=== PATIENT | male | born 1945 | race Caucasian/White ===

== ENCOUNTER 2020-08-03 11:22 | Outpatient (REF) | payer MEDICARE, SELFPAY ==
[2020-08-05 07:45] LABS: ~HepC Num1 0.08 S/CO (0.00-0.79); ~Hepatitis C Antibody Nonreactive (Nonreactive)
[2020-08-05 08:36] LABS: HBsAGNum1 0.18 S/CO (0.00-0.99); HIV AB/AG Nonreactive (Nonreactive); HIV Num 1 0.07 S/CO (0.00-0.99); Hepatitis B Surface Antigen Negative (Negative)
== END 2020-08-03 11:23 | disposition home or self-care (01) ==
LOC: HO.MANLDS 11:22
PROVIDERS: PCP Internal Medicine; Visit Provider Internal Medicine
DX: Z01.84 Encounter for antibody response examination (principal); Z11.4 Encounter for screening for human immunodeficiency virus [HIV]; T14.8XXA Other injury of unspecified body region, initial encounter; W46.1XXA Contact with contaminated hypodermic needle, initial encounter
CPT/HCPCS: 36415; 86803; 87340; 87389

== ENCOUNTER 2021-05-23 18:27 | Outpatient (REF) | payer MEDICARE, SELFPAY ==
[2021-05-23 18:39] LABS: Appearance Urine CLEAR; Color Urine YELLOW; Glucose Urine UA >=1000 MG/DL (NEG); Leukocyte Esterase Urine NEG (NEG); Nitrite Urine NEG (NEG); Specific Gravity - Urine >= 1.030 (1.005-1.025); UACC Culture Trigger NO; Urine Blood TRACE (NEG); Urine Ketones NEG (NEG); Urine Protein 2+ MG/DL (NEG-TRACE)
[2021-05-23 18:55] LABS: Amorphous Sediment Urine TRACE /LPF; Granular Casts Urine 0-2 /LPF; Hyaline Casts Urine 0-2 /LPF; Mucus Urine 1+ /LPF; RBC Urine 0-2 /HPF (0); Renal Epithelial Cells Urine 1+ /LPF; Squamous Epithelial Cell Urine TRACE /LPF; WBC Urine 0-2 /HPF (0-4)
== END 2021-05-23 18:28 | disposition home or self-care (01) ==
LOC: HO.LNP 18:27
PROVIDERS: Visit Provider Physician Assistant
DX: R30.0 Dysuria (principal)
CPT/HCPCS: 81001

== ENCOUNTER 2021-05-24 14:46 | Outpatient (REF) | payer MEDICARE, SELFPAY ==
[2021-05-24 18:17] LABS: Alanine Aminotransferase 17 U/L (0-40); Albumin Level 4.2 g/dL (3.5-5.0); Alkaline Phosphatase 50 U/L (39-117); Amylase 119 U/L (28-100); Aspartate Amino Transferase 20 U/L (5-37); Bilirubin Direct 0.2 mg/dL (0.0-0.5); Bilirubin Total 0.7 mg/dL (0.0-1.0); Lipase 127 U/L (8-78); Total Protein 6.5 g/dL (6.5-8.0)
[2021-05-24 18:18] LABS: Gamma Glutamyl Transpeptidase 18 U/L (11-51)
== END 2021-05-24 14:47 | disposition home or self-care (01) ==
LOC: HO.MANLDS 14:46
PROVIDERS: PCP Physician Assistant; Visit Provider Physician Assistant
DX: R19.5 Other fecal abnormalities (principal)
CPT/HCPCS: 36415; 80076; 82150; 82977; 83690

== ENCOUNTER 2021-05-26 14:09 | Outpatient (REF) | payer MEDICARE, SELFPAY | END 2021-05-26 14:10 | disposition home or self-care (01) | LOC: HO.MANLDS 14:09 | PROVIDERS: PCP Physician Assistant; Visit Provider Physician Assistant | DX: R19.5 Other fecal abnormalities (principal) | CPT/HCPCS: 87045; 87046; 87077 ==

== ENCOUNTER 2021-09-27 14:49 | Outpatient (REF) | payer MEDICARE, SELFPAY ==
[2021-09-27 18:27] LABS: C Reactive Protein 0.15 mg/dL (< or = 0.50)
== END 2021-09-27 14:50 | disposition home or self-care (01) ==
LOC: HO.MANLDS 14:49
PROVIDERS: Visit Provider Internal Medicine
DX: M35.3 Polymyalgia rheumatica (principal)
CPT/HCPCS: 36415; 86140

== ENCOUNTER 2021-10-24 15:03 | Outpatient (REF) | payer MEDICARE, SELFPAY ==
[2021-10-24 18:33] LABS: Hematocrit 33.5 % (42.0-52.0); Hemoglobin 10.9 g/dl (14.0-18.0); Iron 43 mcg/dL (45-160); Mean Corpuscular HGB Conc 32.5 g/dl (31.0-36.0); Mean Corpuscular Hemoglobin 29.6 pg (27.0-33.0); Mean Platelet Volume 10.3 fL (9.4-12.4); Percent Iron Saturation 12 % (15-50); Platelet Count 192 X10*3/uL (160-400); Red Blood Count 3.68 X10*6/uL (4.60-5.80); Red Cell Distribution Width 14.2 % (11.0-16.0); Total Iron Binding Capacity 346 mcg/dL (228-428); Unsaturated Iron Binding 303 ug/dL; White Blood Count 6.2 X10*3/uL (4.8-10.8)
[2021-10-24 18:53] LABS: Ferritin 33 ng/mL (20-250)
== END 2021-10-24 15:04 | disposition home or self-care (01) ==
LOC: HO.MANLDS 15:03
PROVIDERS: Visit Provider Physician Assistant
DX: D50.0 Iron deficiency anemia secondary to blood loss (chronic) (principal)
CPT/HCPCS: 36415; 82728; 83540; 85027

== ENCOUNTER 2021-11-01 15:05 | Outpatient (REF) | payer MEDICARE, SELFPAY ==
[2021-11-02 13:26] LABS: Lyme Abs Screen <0.90 index
[2021-11-05 11:27] LABS: Babesia IgG <1:64 titer (<1:64); Babesia IgM <1:20 titer (<1:20)
[2021-11-05 12:27] LABS: A. Phagocytophilum Ab IgG <1:64 (<1:64); A. Phagocytophilum Ab IgM <1:20 (<1:20); E. Chaffeensis Ab IgG <1:64 (<1:64); E. Chaffeensis Ab IgM <1:20 (<1:20)
== END 2021-11-01 15:06 | disposition home or self-care (01) ==
LOC: HO.MANLDS 15:05
PROVIDERS: Visit Provider Physician Assistant
DX: A69.20 Lyme disease, unspecified (principal)
CPT/HCPCS: 36415; 86617; 86618; 86666; 86753

== ENCOUNTER 2022-06-06 11:15 | Outpatient (REF) | payer MEDICARE, SELFPAY ==
[2022-06-06 13:04] LABS: MANUAL DIFF FLAG NO
[2022-06-06 13:06] LABS: Basophils Percent Auto 0.6 % (0-2); Eosinophils Absolute Auto 0.1 X10*3/uL (0.0-0.4); Eosinophils Percent Auto 2.5 % (0-4); Hematocrit 39.4 % (42.0-52.0); Hemoglobin 13.1 g/dl (14.0-18.0); Imm Gran Abs Auto 0.03 X10*3/uL (0.00-0.03); Imm Gran Pct Auto 0.6 % (0.0-0.4); Lymphocytes Absolute Auto 0.6 X10*3/uL (1.2-4.9); Lymphocytes Percent Auto 12.9 % (20-40); Mean Corpuscular HGB Conc 33.2 g/dl (31.0-36.0); Mean Corpuscular Hemoglobin 30.3 pg (27.0-33.0); Mean Platelet Volume 10.4 fL (9.4-12.4); Monocytes Absolute Auto 0.7 X10*3/uL (0.1-1.2); Neutrophils Absolute Auto 3.3 x10*3/uL (2.0-8.3); Neutrophils Percent Auto 68.4 % (45-73); Platelet Count 182 X10*3/uL (160-400); Red Blood Count 4.33 X10*6/uL (4.60-5.80); White Blood Count 4.9 X10*3/uL (4.8-10.8)
[2022-06-06 13:20] LABS: Alanine Aminotransferase 25 U/L (0-40); Albumin Level 4.4 g/dL (3.5-5.0); Alkaline Phosphatase 67 U/L (39-117); Anion Gap 13 (12-20); Aspartate Amino Transferase 26 U/L (5-37); Bilirubin Total 0.8 mg/dL (0.0-1.0); Blood Urea Nitrogen 38 mg/dL (9-16); Calcium 10.4 mg/dL (8.4-10.2); Carbon Dioxide 27 mmol/L (22-29); Chloride 103 mmol/L (96-108); Cholesterol 198 mg/dL; Estimated Glomerular Filt Rate 26; Glucose Random 89 mg/dL (60-115); HDL Cholesterol 52 mg/dL; LDL Cholesterol Calculated 118 mg/dl; Potassium 4.8 mmol/L (3.3-5.1); Sodium 138 mmol/L (135-145); Total Protein 6.6 g/dL (6.5-8.0); Triglycerides 141 mg/dL
[2022-06-06 13:21] LABS: Estimated Average Glucose 114 mg/dL; Hemoglobin A1C 126.8356 umol/L; Hemoglobin A1c % 5.6 %
== END 2022-06-06 11:16 | disposition home or self-care (01) ==
LOC: HO.MANLDS 11:15
PROVIDERS: Visit Provider Physician Assistant
DX: I10 Essential (primary) hypertension (principal); Z13.89 Encounter for screening for other disorder
CPT/HCPCS: 36415; 80053; 80061; 83036; 85025

== ENCOUNTER 2022-06-19 13:11 | Outpatient (REF) | payer MEDICARE, SELFPAY ==
[2022-06-20 15:17] LABS: E. coli EAEC Detected (Not Detect.)
[2022-06-20 15:18] LABS: Adenovirus F 40/41 Not Detected (Not Detect.); Astrovirus Not Detected (Not Detect.); Campylobacter Not Detected (Not Detect.); Cryptosporidium Not Detected (Not Detect.); Cyclospora cayetanensis Not Detected (Not Detect.); E. coli EPEC Not Detected (Not Detect.); E. coli ETEC Not Detected (Not Detect.); E. coli STEC Not Detected (Not Detect.); Entamoeba histolytica Not Detected (Not Detect.); Giardia lamblia Not Detected (Not Detect.); Norovirus GI/GII Not Detected (Not Detect.); Plesiomonas shigelloides Not Detected (Not Detect.); Rotavirus A Not Detected (Not Detect.); Salmonella Not Detected (Not Detect.); Sapovirus Not Detected (Not Detect.); Shigella sp./EIEC Not Detected (Not Detect.); Vibrio Not Detected (Not Detect.); Vibrio Cholerae Not Detected (Not Detect.); Yersinia enterocolitica Not Detected (Not Detect.)
== END 2022-06-19 13:12 | disposition home or self-care (01) ==
LOC: HO.LNP 13:11
PROVIDERS: Visit Provider Physician Assistant
DX: R10.0 Acute abdomen (principal)
CPT/HCPCS: 87507

== ENCOUNTER 2022-06-20 13:07 | Outpatient (REF) | payer MEDICARE, SELFPAY ==
[2022-06-20 13:29] LABS: OBS1 NEGATIVE (NEGATIVE)
[2022-06-20 13:30] LABS: OBS Int Ctl Valid YES; OBS2 NEGATIVE (NEGATIVE); OBS3 NEGATIVE (NEGATIVE)
[2022-06-20 13:31] LABS: OBS Lot 50612 3L
== END 2022-06-20 13:08 | disposition home or self-care (01) ==
LOC: HO.LNP 13:07
PROVIDERS: Visit Provider Physician Assistant
DX: R19.4 Change in bowel habit (principal)
CPT/HCPCS: 82270

== ENCOUNTER 2023-08-21 11:17 | Outpatient (REF) | payer MEDICARE, SELFPAY ==
[2023-08-21 14:11] LABS: Iron 78 mcg/dL (45-160); Percent Iron Saturation 24 % (15-50); Total Iron Binding Capacity 328 mcg/dL (228-428); Unsaturated Iron Binding 250 ug/dL
[2023-08-21 14:19] LABS: Ferritin 19 ng/mL (20-250)
== END 2023-08-21 11:18 | disposition home or self-care (01) ==
LOC: HO.MANLDS 11:17
PROVIDERS: Visit Provider Internal Medicine
DX: E61.1 Iron deficiency (principal)
CPT/HCPCS: 36415; 82728; 83540

== ENCOUNTER 2023-09-23 11:49 | Outpatient (REF) | payer MEDICARE, SELFPAY ==
[2023-09-23 14:38] LABS: Ferritin 527 ng/mL (20-250); Vitamin D 25-OH Total 28.5 ng/mL (>30)
== END 2023-09-23 11:50 | disposition home or self-care (01) ==
LOC: HO.MANLDS 11:49
PROVIDERS: Visit Provider Internal Medicine
DX: E55.9 Vitamin D deficiency, unspecified (principal)
CPT/HCPCS: 36415; 82306; 82728

== ENCOUNTER 2023-10-25 11:36 | Outpatient (REF) | payer MEDICARE, SELFPAY ==
[2023-10-25 14:48] LABS: Folate 14.3 ng/mL (> or = 4.0); Vitamin B12 610 pg/mL (200-900)
[2023-10-25 14:52] LABS: Ferritin 69 ng/mL (20-250); Free T4 (Free Thyroxine) 0.93 ng/dL (0.71-1.85); Thyroid Stimulating Hormone 1.29 uIU/mL (0.32-4.0)
== END 2023-10-25 11:37 | disposition home or self-care (01) ==
LOC: HO.MANLDS 11:36
PROVIDERS: Visit Provider Internal Medicine
DX: R41.3 Other amnesia (principal)
CPT/HCPCS: 36415; 82607; 82728; 82746; 84439; 84443

== ENCOUNTER 2023-12-25 11:48 | Outpatient (REF) | payer MEDICARE, SELFPAY ==
[2023-12-25 14:28] LABS: Ferritin 22 ng/mL (20-250)
== END 2023-12-25 11:49 | disposition home or self-care (01) ==
LOC: HO.MANLDS 11:48
PROVIDERS: Visit Provider Internal Medicine
DX: E61.1 Iron deficiency (principal)
CPT/HCPCS: 36415; 82728

== ENCOUNTER 2024-02-05 12:07 | Outpatient (REF) | payer MEDICARE, SELFPAY ==
[2024-02-05 17:47] LABS: MANUAL DIFF FLAG NO
[2024-02-05 18:07] LABS: Basophils Absolute Auto 0.1 X10*3/uL (0.0-0.2); Basophils Percent Auto 0.7 % (0-2); Eosinophils Absolute Auto 0.2 X10*3/uL (0.0-0.4); Eosinophils Percent Auto 2.5 % (0-4); Hematocrit 41.8 % (42.0-52.0); Hemoglobin 14.5 g/dl (14.0-18.0); Imm Gran Abs Auto 0.05 X10*3/uL (0.00-0.03); Imm Gran Pct Auto 0.7 % (0.0-0.4); Lymphocytes Percent Auto 14.5 % (20-40); Mean Corpuscular HGB Conc 34.7 g/dl (31.0-36.0); Mean Corpuscular Hemoglobin 32.3 pg (27.0-33.0); Mean Corpuscular Volume 93.1 fL (80.0-98.0); Mean Platelet Volume 10.2 fL (9.4-12.4); Monocytes Absolute Auto 0.8 X10*3/uL (0.1-1.2); Monocytes Percent Auto 11.5 % (2-11); Neutrophils Absolute Auto 4.7 x10*3/uL (2.0-8.3); Neutrophils Percent Auto 70.1 % (45-73); Platelet Count 234 X10*3/uL (160-400); Red Blood Count 4.49 X10*6/uL (4.60-5.80); Red Cell Distribution Width 14.4 % (11.0-16.0); White Blood Count 6.7 X10*3/uL (4.8-10.8)
[2024-02-05 18:12] LABS: Alanine Aminotransferase 22 U/L (0-40); Albumin Level 4.5 g/dL (3.5-5.0); Alkaline Phosphatase 62 U/L (39-117); Anion Gap 14 (12-20); Aspartate Amino Transferase 27 U/L (5-37); Bilirubin Total 0.8 mg/dL (0.0-1.0); Blood Urea Nitrogen 31 mg/dL (9-16); C Reactive Protein < 0.04 mg/dL (< or = 0.50); Calcium 10.8 mg/dL (8.4-10.2); Carbon Dioxide 21 mmol/L (22-29); Chloride 106 mmol/L (96-108); Estimated Glomerular Filt Rate 27; Glucose Random 119 mg/dL (60-115); Iron 107 mcg/dL (45-160); Percent Iron Saturation 34 % (15-50); Potassium 4.6 mmol/L (3.3-5.1); Sodium 136 mmol/L (135-145); Total Iron Binding Capacity 318 mcg/dL (228-428); Total Protein 7.1 g/dL (6.5-8.0); Unsaturated Iron Binding 211 ug/dL
[2024-02-05 18:28] LABS: Ferritin 56 ng/mL (20-250); T4 Thyroxine 6.8 ug/dL (4.5-12.0); Thyroid Stimulating Hormone 1.11 uIU/mL (0.32-4.0)
[2024-02-05 18:36] LABS: Vitamin B12 724 pg/mL (200-900)
[2024-02-05 18:41] LABS: Erythrocyte Sedimentation Rate 3 MM/HR (0-15)
[2024-02-07 03:44] LABS: Immunoglobulin E 121 kU/L (<OR=114)
[2024-02-10 15:03] LABS: VITAMIN D (1,25 OH) D3 31 pg/mL; Vit D (1,25-Dihydroxy) Total 31 pg/mL (18-72); Vitamin D (1,25 OH) D2 <8 pg/mL
== END 2024-02-05 12:08 | disposition home or self-care (01) ==
LOC: HO.MANLDS 12:07
PROVIDERS: Visit Provider Physician Assistant
DX: R53.83 Other fatigue (principal); E61.1 Iron deficiency
CPT/HCPCS: 36415; 80053; 82607; 82652; 82728; 82785; 83540; 84436; 84443; 85025; 85652; 86140

== ENCOUNTER 2024-06-23 13:46 | Outpatient (REF) | payer MEDICARE, SELFPAY ==
--- OUTSIDE RECORDS SUMMARY | 2024-06-23 16:23 | XMS_ITS | Encounter Summary ---
Author Organization [facility], Address [address] [place] [address] Phone Care Team Providers Care Diving Coach Name Role Phone Yared Kam DO Primary Care Provider [phone] Encounter Details Date Type Department Care Team (Late st Contact Info) Description 04/05/2023 Orders Only [facility] [address] [place] [address] Angelica De Leon [address] [place] [phone] 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hy (HCC); Other iron deficiency anemia; Peripheral vascular disease (HCC); Nephrolithiasis; Other hyperlipidemia; Essential hypertension; Stage 3b chronic kidney disease (HCC); Edema, not otherwise specified; Routine general medical examination at a health care facility Social History Tobacco Use Types Packs/Day Years Used Date Smoking Tobacco: Former Cigarettes Comments:Smoking History Inf o:Unknown Alcohol Use Standard Drinks/Week Comments Yes 0 (1 standard drink = 0.6 oz pure alcohol) Alcoholic Drinks/day: Occasional social drink Sex and Gender Information Value Date Recorded Sex Assigned at Male 01/06/2024 3:41 PM EDT Legal Sex Male 4:31 PM EST Gender Identity Male 01/06/2024 3:41 PM EDT Sexual Orientation Straight 01/06/2024 3: 41 PM EDT documented as of this encounter Plan of Treatment Upcoming Encounters Date Type Department Care Team (Late st Contact Info) Description 07/09/2024 2:15 PM EDT Office Visit [facility] Lele [address] [place] [phone] Bereket Billings MD [address] [place] [phone] documented as of this encounter Visit Diagnoses Diagnosis 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hy (HCC) Other iron deficiency anemia Peripheral vascular disease (HCC) Peripheral vascular disease Nephrolithiasis Other hyperlipidemia Essential hypertension Stage 3b chronic kidney disease (HCC) Edema, not otherwise specified Routine general medical examination at a health care facility documented in this encounter Care Teams Diving Coach Relationship Specialty Start Date End Date Yared Kam DO [address] [place] [phone] PCP - General 01/27/19 documented as of this encounter
--- OUTSIDE RECORDS SUMMARY | 2024-06-23 16:23 | XMS_ITS | Encounter Summary ---
Author Organization [facility], Address [address] [place] [address] Phone Care Team Providers Care Supervisor [employer] Name Role Phone Yared Kam DO Primary Care Provider [phone] Encounter Details Date Type Department Care Team (Late st Contact Info) Description 07/12/2023 Orders Only [facility] [address] [place] [address] Angelica De Leon [address] [place] [phone] 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hy [...] Visit [facility] Lele [address] [place] [phone] Bereket Billings MD [address] [place] [phone] documented as of this encounter Procedures Procedure Name Priority Date/Time Associated Diagnosis Comments HEMOGLOBIN A1C Routine 07/15/2023 1:33 PM EDT 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hy (HCC) Other iron deficiency anemia Peripheral vascular disease (HCC) Nephrolithiasis Other hyperlipidemia Essential hypertension Stage 3b chronic kidney disease (HCC) Edema, not otherwise specified Routine general medical examination at a health care facility documented in this encounter Results * (ABNORMAL) Hemoglobin A1c (07/15/2023 1:33 PM EDT) Hemoglobin A1C 5.9(H) 4.8 - 5.6 % See order comments Comment: ? Prediabetes: 5.7 - 6.4 ? Diabetes: >6.4 ? Glycemic control for adults with diabetes: <7.0 Blood (Blood, Venous) 07/15/2023 1:33 PM EDT 07/15/2023 Narrative [facility] - 07/16/2023 9:07 AM EDT Performed at: ??01 - [facility] [address] ??[id number] Manager Medicaid: Kathleen Hyman MD, Phone: ??[phone] us Jose Newell MD LAB BLOOD ORDERABLES Final Res ult [facility] See order comments [place] [address] documented in this encounter Visit Diagnoses Diagnosis 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hy (HCC) Other iron deficiency anemia Peripheral vascular disease (HCC) Peripheral vascular disease Nephrolithiasis Other hyperlipidemia Essential hypertension Stage 3b chronic kidney disease (HCC) Edema, not otherwise specified Routine general medical examination at a health care facility documented in this encounter Care Teams Supervisor [employer] Relationship Specialty Start Date End Date Yared Kam DO [address] [place] [phone] PCP - General 01/27/19 documented as of this encounter
--- OUTSIDE RECORDS SUMMARY | 2024-06-23 16:23 | XMS_ITS | Encounter Summary ---
Author Organization [facility], Address [address] [place] [address] Phone Care Team Providers Care Tire Finisher Name Role Phone Yared Kam DO Primary Care Provider [phone] Encounter Details Date Type Department Care Team (Late st Contact Info) Description 06/28/2023 Orders Only [facility] [address] [place] [address] Angelica De Leon [address] [place] [address] [phone] 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hy [...] Visit [facility] Lele HANNON [address] [place] [phone] Bereket Billings MD [address] [place] [address] [place] [phone] documented as of this encounter Procedures Procedure Name Priority Date/Time Associated Diagnosis Comments URINALYSIS, COMPLETE Routine 07/15/2023 1:34 PM EDT 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hy (HCC) Other iron deficiency anemia Peripheral vascular disease (HCC) Nephrolithiasis Other hyperlipidemia Essential hypertension Stage 3b chronic kidney disease (HCC) Edema, not otherwise specified Routine general medical examination at a health care facility MICROSCOPIC EXAMINATION - DO NOT USE Routine 07/15/2023 1:34 PM EDT IRON PANEL (FE, TIBC, TSAT) Routine 07/15/2023 1:34 PM EDT 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hy (HCC) Other iron deficiency anemia Peripheral vascular disease (HCC) Nephrolithiasis Other hyperlipidemia Essential hypertension Stage 3b chronic kidney disease (HCC) Edema, not otherwise specified Routine general medical examination at a health care facility PROTEIN / CREATININE RATIO, URINE Routine 07/15/2023 1:34 PM EDT 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hy (HCC) Other iron deficiency anemia Peripheral vascular disease (HCC) Nephrolithiasis Other hyperlipidemia Essential hypertension Stage 3b chronic kidney disease (HCC) Edema, not otherwise specified Routine general medical examination at a health care facility URINE ALBUMIN / CREATININE RATIO Routine 07/15/2023 1:34 PM EDT 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hy (HCC) Other iron deficiency anemia Peripheral vascular disease (HCC) Nephrolithiasis Other hyperlipidemia Essential hypertension Stage 3b chronic kidney disease (HCC) Edema, not otherwise specified Routine general medical examination at a health care facility VITAMIN D 25 HYDROXY Routine 07/15/2023 1:34 PM EDT 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hy (HCC) Other iron deficiency anemia Peripheral vascular disease (HCC) Nephrolithiasis Other hyperlipidemia Essential hypertension Stage 3b chronic kidney disease (HCC) Edema, not otherwise specified Routine general medical examination at a health care facility CBC AND DIFFERENTIAL Routine 07/15/2023 1:34 PM EDT 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hy (HCC) Other iron deficiency anemia Peripheral vascular disease (HCC) Nephrolithiasis Other hyperlipidemia Essential hypertension Stage 3b chronic kidney disease (HCC) Edema, not otherwise specified Routine general medical examination at a health care facility URIC ACID Routine 07/15/2023 1:34 PM EDT 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hy (HCC) Other iron deficiency anemia Peripheral vascular disease (HCC) Nephrolithiasis Other hyperlipidemia Essential hypertension Stage 3b chronic kidney disease (HCC) Edema, not otherwise specified Routine general medical examination at a health care facility TSH W/REFLEX TO FT4 Routine 07/15/2023 1 :34 PM EDT 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hy (HCC) Other iron deficiency anemia Peripheral vascular disease (HCC) Nephrolithiasis Other hyperlipidemia Essential hypertension Stage 3b chronic kidney disease (HCC) Edema, not otherwise specified Routine general medical examination at a health care facility PSA, TOTAL Routine 07/15/2023 1:34 PM EDT 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hy (HCC) Other iron deficiency anemia Peripheral vascular disease (HCC) Nephrolithiasis Other hyperlipidemia Essential hypertension Stage 3b chronic kidney disease (HCC) Edema, not otherwise specified Routine general medical examination at a health care facility PTH, INTACT Routine 07/15/2023 1:34 PM EDT 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hy (HCC) Other iron deficiency anemia Peripheral vascular disease (HCC) Nephrolithiasis Other hyperlipidemia Essential hypertension Stage 3b chronic kidney disease (HCC) Edema, not otherwise specified Routine general medical examination at a health care facility MAGNESIUM Routine 07/15/2023 1:34 PM EDT 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hy (HCC) Other iron deficiency anemia Peripheral vascular disease (HCC) Nephrolithiasis Other hyperlipidemia Essential hypertension Stage 3b chronic kidney disease (HCC) Edema, not otherwise specified Routine general medical examination at a health care facility FERRITIN Routine 07/15/2023 1:34 PM EDT 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hy (HCC) Other iron deficiency anemia Peripheral vascular disease (HCC) Nephrolithiasis Other hyperlipidemia Essential hypertension Stage 3b chronic kidney disease (HCC) Edema, not otherwise specified Routine general medical examination at a health care facility HEPATIC FUNCTION PANEL Routine 07/15/2023 1:34 PM EDT 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hy (HCC) Other iron deficiency anemia Peripheral vascular disease (HCC) Nephrolithiasis Other hyperlipidemia Essential hypertension Stage 3b chronic kidney disease (HCC) Edema, not otherwise specified Routine general medical examination at a health care facility RENAL FUNCTION PANEL Routine 07/15/2023 1:34 PM EDT 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hy (HCC) Other iron deficiency anemia Peripheral vascular disease (HCC) Nephrolithiasis Other hyperlipidemia Essential hypertension Stage 3b chronic kidney disease (HCC) Edema, not otherwise specified Routine general medical examination at a health care facility LIPID PANEL Routine 07/15/2023 1:34 PM EDT 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hy (HCC) Other iron deficiency anemia Peripheral vascular disease (HCC) Nephrolithiasis Other hyperlipidemia Essential hypertension Stage 3b chronic kidney disease (HCC) Edema, not otherwise specified Routine general medical examination at a health care facility documented in this encounter Results * Microscopic Examination (07/15/2023 1:34 PM EDT) WBC, Urine None seen 0 - 5 /hpf See orde r comments RBC, Urine None seen 0 - 2 /hpf See orde r comments Squamous Epithelial, Urine None seen 0 - 10 /hpf See order comments Casts None seen None seen /lpf See order comments Bacteria, Urine None seen None seen/Few See order comments 07/15/2023 1:34 PM EDT 07/15/2023 Narrative [facility] - 07/17/2023 1:06 AM EDT Performed at: ??01 - [facility] [address] ??[id number] Tax Compliance Manager: Kathleen Hyman MD, Phone: ??[phone] us Jose Newell MD LAB MICROBIOLOGY - GENERAL ORD ERABLES Final Result Performing Organization Address City/State/[facility] Co de Phone Number [facility] See order comments [place] [address] * (ABNORMAL) PTH, intact (07/15/2023 1:34 PM EDT) Pathologist [facility] PTH 82(H) 15 - 65 pg/mL See order comments Blood (Blood, Venous) 07/15/2023 1:34 PM EDT 07/15/2023 Narrative [facility] - 07/17/2023 1:06 AM EDT Performed at: ?? - [facility] [address] ??[id number] Tax Compliance Manager: Kathleen Hyman MD, Phone: ??[phone] Jose Newell MD LAB BLOOD ORDERABLES Final Res ult Performing Organization Address [facility] de Phone Number [facility] See order comments [place] [address] * (ABNORMAL) Lipid panel (07/15/2023 1:34 PM EDT) [facility] Cholesterol 189 100 - 199 mg/dL See order comments Triglycerides 262(H) 0 - 149 mg/dL See order comments HDL 48 >39 mg/dL See order comments VLDL Cholesterol Andrea 44(H) 5 - 40 mg/dL See order comments LDL Calculated 97 0 - 99 mg/dL See order comments Blood (Blood, Venous) 07/15/2023 1:34 PM EDT 07/15/2023 Narrative [facility] - 07/17/2023 1:06 AM EDT Performed at: ?? - [facility] [address] ??[id number] Tax Compliance Manager: Kathleen Hyman MD, Phone: ??[phone] Jose Newell MD LAB BLOOD ORDERABLES Final Res ult Performing Organization Address [facility] de Phone Number [facility] See order comments [place] [address] * PSA (07/15/2023 1:34 PM EDT) Pathologist [facility] PSA 0.4 0.0 - 4.0 ng/mL See order comments Comment: Pretty ECLIA methodology. According to the [place] [employer], Serum PSA should decrease and remain at undetectable levels after radical prostatectomy. The AUA defines biochemical recurrence as an initial PSA value 0.2 ng/mL or greater followed by a subsequent confirmatory PSA value 0.2 ng/mL or greater. Values obtained with different assay methods or kits cannot be used interchangeably. Results cannot be interpreted as absolute evidence of the presence or absence of malignant disease. Blood (Blood, Venous) 07/15/2023 1:34 PM EDT 07/15/2023 Narrative [facility] - 07/17/2023 1:06 AM EDT Performed at: ??01 - [facility] [address] ??[id number] Tax Compliance Manager: Kathleen Hyman MD, Phone: ??[phone] Jose Newell MD LAB BLOOD ORDERABLES Final Res ult [facility] See order comments [place] [address] * Hepatic function panel (07/15/2023 1:34 PM EDT) Total Protein 6.7 6.0 - 8.5 g/dL See order comments Total Bilirubin 0.5 0.0 - 1.2 mg/dL See order comments Bilirubin, Direct 0.16 0.00 - 0.40 mg/dL See order comments Alkaline Phosphatase 83 44 - 121 IU/L See order comments AST (SGOT) 20 0 - 40 IU/L See order comments ALT (SGPT) 18 0 - 44 IU/L See order comments Blood (Blood, Venous) 07/15/2023 1:34 PM EDT 07/15/2023 Narrative [facility] - 07/17/2023 1:06 AM EDT Performed at: ??01 - [facility] [address] ??[id number] Tax Compliance Manager: Kathleen Hyman MD, Phone: ??[phone] Jose Newell MD LAB BLOOD ORDERABLES Final Res ult Performing Organization Address [facility]/ZIP Co de Phone Number [facility] See order comments [place] [address] * TSH w/reflex to FT4 (07/15/2023 1:34 PM EDT) TSH 1.520 0.450 - 4.500 uIU/mL See order comments Comment: No apparent thyroid disorder. Additional testing not indicated. In rare instances, Secondary Hypothyroidism as well as Subclinical Hypothyroidism have been reported in some patients with normal TSH values. Blood (Blood, Venous) 07/15/2023 1:34 PM EDT 07/15/2023 Narrative [facility] - 07/17/2023 1:06 AM EDT Performed at: ??01 - [facility] [address] ??[id number] Tax Compliance Manager: Kathleen Hyman MD, Phone: ??[phone] Jose Newell MD LAB BLOOD ORDERABLES Final Res ult Performing Organization Address [facility] Co de Phone Number [facility] See order comments [place] [address] * (ABNORMAL) Vitamin D 25 hydroxy (07/15/2023 1:34 PM EDT) Vitamin D, 25-OH, Total 13.1(L) 30.0 - 100.0 ng/mL See order comments Comment: Vitamin D deficiency has been defined by the [place] of [employer] and an Endocrine Society practice guideline as a level of serum 25-OH vitamin D less than 20 ng/mL (1,2). The Endocrine Society went on to further define vitamin D insufficiency as a level between 21 and 29 ng/mL (2). 1. IOM ([place] of [employer]). 2010. Dietary reference ?? intakes for calcium and D. [place]: The ?? National Academies Press. 2. Flaquito MF, Jean Carlos [place], Sathya WALLER, et al. ?? Evaluation, treatment, and prevention of vitamin D ?? deficiency: an Endocrine Society clinical practice ?? guideline. JCEM. 2010; 96(7):1911-30. Blood (Blood, Venous) 07/15/2023 1:34 PM EDT 07/15/2023 Narrative [facility] - 07/17/2023 1:06 AM EDT Performed at: ??01 - [facility] [address] ??[id number] Tax Compliance Manager: Kathleen Hyman MD, Phone: ??[phone] Jose Newell MD LAB BLOOD ORDERABLES Final Res ult Performing Organization Address [facility] de Phone Number [facility] See order comments [place] [address] * (ABNORMAL) Urine Albumin / Creatinine Ratio (07/15/2023 1:34 PM EDT) Urine Microalbumin 517.8 Not Estab. ug/mL See order comments Comment: Results confirmed on dilution. Microalbumin/Crea tinine Ratio 2,185(H) 0 - 29 mg/g creat See order comments Comment: ? Normal: ?0 - ??29 ? Moderately increased: 30 - 300 ? Severely increased: ? >300 Urine (Urine, Clean Catch) 07/15/2023 1:34 PM EDT 07/15/2023 Narrative [facility] - 07/17/2023 1:06 AM EDT Performed at: ??01 - [facility] [address] ??[id number] Tax Compliance Manager: Kathleen Hyman MD, Phone: ??[phone] us Jose Newell MD LAB URINE ORDERABLES Final Res ult Performing Organization Address [facility] de Phone Number [facility] See order comments [place] [address] * (ABNORMAL) Urine Protein / creatinine ratio (07/15/2023 1:34 PM EDT) Creatinine, Ur 23.7 Not Estab. mg/dL See order comments Protein, Ur 79.8 Not Estab. mg/dL See order comments Urine Protein/Creati nine Ratio 3,367(H) 0 - 200 mg/g creat See order comments Urine (Urine, Clean Catch) 07/15/2023 1:34 PM EDT 07/15/2023 Narrative [facility] - 07/17/2023 1:06 AM EDT Performed at: ??01 - [facility] [address] ??[id number] Tax Compliance Manager: Kathleen Hyman MD, Phone: ??[phone] us Jose Newell MD LAB URINE ORDERABLES Final Res ult [facility] See order comments [place] [address] * (ABNORMAL) Urinalysis, Complete w/reflex to Culture (07/15/2023 1:34 PM EDT) Pathologist [facility] Specific [place], Urine 1.010 1.005 - 1.030 See order comments pH Urine 7.0 5.0 - 7.5 See order comments Color, Urine Yellow Yellow See ord er comments Appearance Urine Clear Clear See order comments WBC Esterase Urine Negative Negative See order comments Protein, Ur 2+(A) Negative/Tra ce See order comments Glucose, Ur 3+(A) Negative See orde r comments Ketones, Urine Negative Negative See o rder comments Blood Urine Negative Negative See orde r comments Bilirubin Urine Negative Negative See order comments Urobilinogen Urine 0.2 0.2 - 1.0 mg/dL See order comments Nitrite, Urine Negative Negative See o rder comments Microscopic Examination See below: See order comments Comment:Microscopic was anatoliy cated and was performed. URINALYSIS REFLEX Comment See order comments Comment:This specimen will n ot reflex to a Urine Culture. Urine (Urine, Clean Catch) 07/15/2023 1:34 PM EDT 07/15/2023 Narrative [facility] - 07/17/2023 1:06 AM EDT Performed at: ??01 - [facility] [address] ??[id number] Tax Compliance Manager: Kathleen Hyman MD, Phone: ??[phone] Jose Newell MD LAB URINE ORDERABLES Final Res ult Performing Organization Address [facility] Co de Phone Number [facility] See order comments [place] [address] * (ABNORMAL) Ferritin (07/15/2023 1:34 PM EDT) Ferritin 18(L) 30 - 400 ng/mL See order comments Blood (Blood, Venous) 07/15/2023 1:34 PM EDT 07/15/2023 Narrative [facility] - 07/17/2023 1:06 AM EDT Performed at: ?? - [facility] ??[id number] Tax Compliance Manager: Kathleen Hyman MD, Phone: ??[phone] Jose Newell MD LAB BLOOD ORDERABLES Final Res ult Performing Organization Address [facility] Co de Phone Number [facility] See order comments [place] [address] * (ABNORMAL) Iron Panel (Fe, TIBC, TSAT) (07/15/2023 1:34 PM EDT) Pathologist [facility] TIBC 383 250 - 450 ug/dL See order comments UIBC 344(H) 111 - 343 ug/dL See order comments Iron 39 38 - 169 ug/dL See order comments Iron Saturation (TSat) 10(L) 15 - 55 % See order comments Blood (Blood, Venous) 07/15/2023 1:34 PM EDT 07/15/2023 Narrative [facility] - 07/17/2023 1:06 AM EDT Performed at: ??01 - [facility] [address] ??[id number] Tax Compliance Manager: Kathleen Hyman MD, Phone: ??[phone] Jose Newell MD LAB BLOOD ORDERABLES Final Res ult [facility] See order comments [place] [address] * (ABNORMAL) CBC and differential (07/15/2023 1:34 PM EDT) WBC 7.3 3.4 - 10.8 x10E3/uL See order comments RBC 4.62 4.14 - 5.80 x10E6/uL See order comments Hemoglobin 13.3 13.0 - 17.7 g/dL See order comments Hematocrit 40.3 37.5 - 51.0 % See order comments MCV 87 79 - 97 fL See order comments MCH 28.8 26.6 - 33.0 pg See order comments MCHC 33.0 31.5 - 35.7 g/dL See order comments RDW 15.5(H) 11.6 - 15.4 % See order comments Platelets 233 150 - 450 x10E3/uL See order comments Neutrophils Relative 68 Not Estab. % See order comments Lymphocytes Relative 12 Not Estab. % See order comments Monocytes 13 Not Estab. % See order comments Eosinophils Relative 5 Not Estab. % See order comments Basophils Relative 1 Not Estab. % See order comments Neutrophils Absolute 5.0 1.4 - 7.0 x10E3/uL See order comments Lymphocytes Absolute 0.9 0.7 - 3.1 x10E3/uL See order comments Monocytes Absolute 0.9 0.1 - 0.9 x10E3/uL See order comments Eosinophils Absolute 0.4 0.0 - 0.4 x10E3/uL See order comments Basophils Absolute 0.1 0.0 - 0.2 x10E3/uL See order comments Immature Granulocytes 1 Not Estab. % See order comments Immature Grans (Absolute) 0.0 0.0 - 0.1 x10E3/uL See order comments Blood (Blood, Venous) 07/15/2023 1:34 PM EDT 07/15/2023 Narrative [facility] - 07/17/2023 1:06 AM EDT Performed at: ??01 - [facility] [address] ??[id number] Tax Compliance Manager: Kathleen Hyman MD, Phone: ??[phone] us Jose Newell MD LAB BLOOD ORDERABLES Final Res ult Performing Organization Address [facility] Co de Phone Number [facility] See order comments [place] [address] * Uric acid (07/15/2023 1:34 PM EDT) Uric Acid 4.9 3.8 - 8.4 mg/dL See order comments Comment:Therapeutic target f or gout patients: <6.0 Blood (Blood, Venous) 07/15/2023 1:34 PM EDT 07/15/2023 Narrative [facility] - 07/17/2023 1:06 AM EDT Performed at: ??01 - [facility] [address] ??[id number] Tax Compliance Manager: Kathleen Hyman MD, Phone: ??[phone] us Jose Newell MD LAB BLOOD ORDERABLES Final Res ult Performing Organization Address [facility] de Phone Number [facility] See order comments [place] [address] * Magnesium (07/15/2023 1:34 PM EDT) Pathologist [facility] Magnesium 2.0 1.6 - 2.3 mg/dL See order comments Blood (Blood, Venous) 07/15/2023 1:34 PM EDT 07/15/2023 Narrative [facility] - 07/17/2023 1:06 AM EDT Performed at: ??01 - [facility] [address] ??[id number] Tax Compliance Manager: Kathleen Hyman MD, Phone: ??[phone] us Jose Newell MD LAB BLOOD ORDERABLES Final Res ult Performing Organization Address [facility] de Phone Number [facility] See order comments [place] [address] * (ABNORMAL) Renal function panel (07/15/2023 1:34 PM EDT) Glucose 79 70 - 99 mg/dL See order comments BUN 26 8 - 27 mg/dL See order comments Creatinine 1.92(H) 0.76 - 1.27 mg/dL See order comments eGFR CKD-EPI CR 2020 36(L) >59 mL/min/1.7 3 See order comments BUN/Creatinine Ratio 14 10 - 24 See order comments Sodium 141 134 - 144 mmol/L See order comments Potassium 4.3 3.5 - 5.2 mmol/L See order comments Chloride 102 96 - 106 mmol/L See order comments Bicarbonate (CO2) 22 20 - 29 mmol/L See order comments Phosphorus 2.3(L) 2.8 - 4.1 mg/dL See order comments Albumin 4.3 3.8 - 4.8 g/dL See order comments Calcium 10.5(H) 8.6 - 10.2 mg/dL See order comments Blood (Blood, Venous) 07/15/2023 1:34 PM EDT 07/15/2023 Narrative [facility] - 07/17/2023 1:06 AM EDT Performed at: ??01 - [facility] [address] ??[id number] Tax Compliance Manager: Kathleen Hyman MD, Phone: ??[phone] us Jose Newell MD LAB BLOOD ORDERABLES Final Res ult [facility] See order comments [place] [address] documented in this encounter Visit Diagnoses Diagnosis 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hy (HCC) Other iron deficiency anemia Peripheral vascular disease (HCC) Peripheral vascular disease Nephrolithiasis Other hyperlipidemia Essential hypertension Stage 3b chronic kidney disease (HCC) Edema, not otherwise specified Routine general medical examination at a health care facility documented in this encounter Care Teams Tire Finisher Relationship Specialty Start Date End Date Yared Kam DO [address] [place] [address] PCP - General 01/27/19 documented as of this encounter
--- OUTSIDE RECORDS SUMMARY | 2024-06-23 16:24 | XMS_ITS | Encounter Summary ---
Author Organization [facility], Address [address] [place] [address] Phone Care Team Providers Care Director Internal Communications Name Role Phone Yared Kam DO Primary Care Provider [phone] Encounter Details Date Type Department Care Team (Late st Contact Info) Description 09/20/2023 Orders Only [facility] [address] [address] Angelica De Leon [address] [place] [address] [phone] 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hy [...] Visit [facility] Lele [address] [place] [phone] Bereket Billings MD [address] [place] [address] [place] [phone] Pending Results Name Type Priority Associated Diagnoses Date /Time Renal Function Panel Lab Routine 12/23 3:07 PM EDT Hepatic Function Panel Lab Routine 3:07 PM EDT Lipid panel Lab Routine 01/08/2024 3: 07 PM EDT Iron Panel (Fe, TIBC, TSAT) Lab Routine 01/08/2024 3:07 PM EDT TSH w/reflex to FT4 Lab Routine 01/07 3:07 PM EDT Uric Acid Lab Routine 01/08/2024 3:0 7 PM EDT Magnesium Lab Routine 01/08/2024 3:0 7 PM EDT Ferritin Lab Routine 01/08/2024 3:0 7 PM EDT documented as of this encounter Procedures Procedure Name Priority Date/Time Associated Diagnosis Comments IRON PANEL (FE, TIBC, TSAT) Routine 01/08/2024 3:07 PM EDT VITAMIN D 25 HYDROXY Routine 01/08/2024 3:07 PM EDT CBC AND DIFFERENTIAL Routine 01/08/2024 3:07 PM EDT URIC ACID Routine 01/08/2024 3:07 PM EDT TSH W/REFLEX TO FT4 Routine 01/08/2024 3 :07 PM EDT PTH, INTACT Routine 01/08/2024 3:07 PM EDT MAGNESIUM Routine 01/08/2024 3:07 PM EDT FERRITIN Routine 01/08/2024 3:07 PM EDT HEPATIC FUNCTION PANEL Routine 01/08/2024 3:07 PM EDT RENAL FUNCTION PANEL Routine 01/08/2024 3:07 PM EDT LIPID PANEL Routine 01/08/2024 3:07 PM EDT documented in this encounter Results * (ABNORMAL) PTH, Intact (01/08/2024 3:07 PM EDT) PTH 77(H) 15 - 65 pg/mL [facility] 01/08/2024 3:07 PM EDT 01/08/2024 Jose Newell MD LAB BLOOD ORDERABLES Final Res ult Performing Organization Address City/[facility]/ZIP Co de Phone Number [facility] [address] [place] [address] * Vitamin D 25 Hydroxy (01/08/2024 3:07 PM EDT) Vitamin D, 25-OH, Total 31.5 30.0 - 100.0 ng/mL [facility] Comment: Vitamin D deficiency has been defined by the [place] of [employer] and an Endocrine Society practice guideline as a level of serum 25-OH vitamin D less than 20 ng/mL (1,2). The Endocrine Society went on to further define vitamin D insufficiency as a level between 21 and 29 ng/mL (2). 1. IOM ([place] of Medicine). 2010. Dietary reference ?? intakes for calcium and D. [place]: The ?? National Academies Press. 2. Flaquito MF, Jean Carlos [place], Sathya WALLER, et al. ?? Evaluation, treatment, and prevention of vitamin D ?? deficiency: an Endocrine Society clinical practice ?? guideline. JCEM. 2010; 96(7):1911-30. 01/08/2024 3:07 PM EDT 01/08/2024 Jose Newell MD LAB BLOOD ORDERABLES Final Res ult [facility] [address] [place] [address] * (ABNORMAL) CBC and Differential (01/08/2024 3:07 PM EDT) WBC 7.3 3.4 - 10.8 x10E3/uL [facility] RBC 4.51 4.14 - 5.80 x10E6/uL [facility] Hemoglobin 14.8 13.0 - 17.7 g/dL [facility] Hematocrit 42.8 37.5 - 51.0 % [facility] MCV 95 79 - 97 fL [facility] MCH 32.8 26.6 - 33.0 pg [facility] MCHC 34.6 31.5 - 35.7 g/dL [facility] RDW 13.8 11.6 - 15.4 % [facility] Platelets 238 150 - 450 x10E3/uL [facility] Neutrophils Relative 65 Not Estab. % [facility] Lymphocytes Relative 15 Not Estab. % [facility] Monocytes 15 Not Estab. % [facility] Eosinophils Relative 3 Not Estab. % [facility] Basophils Relative 1 Not Estab. % [facility] Neutrophils Absolute 4.8 1.4 - 7.0 x10E3/uL [facility] Lymphocytes Absolute 1.1 0.7 - 3.1 x10E3/uL [facility] Monocytes Absolute 1.1(H) 0.1 - 0.9 x10E3/uL [facility] Eosinophils Absolute 0.3 0.0 - 0.4 x10E3/uL [facility] Basophils Absolute 0.1 0.0 - 0.2 x10E3/uL [facility] Immature Granulocytes 1 Not Estab. % [facility] Immature Grans (Absolute) 0.0 0.0 - 0.1 x10E3/uL [facility] Comment: Unable to calculate result since non-numeric result obtained for component test. 01/08/2024 3:07 PM EDT 01/08/2024 us Jose eNwell MD LAB BLOOD ORDERABLES Final Res ult [facility] [address] [place] [phone] documented in this encounter Visit Diagnoses Diagnosis 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hy (HCC) Other iron deficiency anemia Peripheral vascular disease (HCC) Peripheral vascular disease Nephrolithiasis Other hyperlipidemia Essential hypertension Stage 3b chronic kidney disease (HCC) Edema, not otherwise specified Routine general medical examination at a health care facility documented in this encounter Care Teams Director Internal Communications Relationship Specialty Start Date End Date Yared Kam DO [address] [place] [address] PCP - General 01/27/19 documented as of this encounter
--- OUTSIDE RECORDS SUMMARY | 2024-06-23 16:24 | XMS_ITS | Encounter Summary ---
Author Organization [facility], Address [address] [place] [address] Phone Care Team Providers Care Prospect Manager Name Role Phone Yared Kam DO Primary Care Provider [phone] Encounter Details Date Type Department Care Team (Late st Contact Info) Description 11/03/2021 Documentation Only [facility] [address] [place] [address] Jose Newell MD [address] [place] [address] [place] [address] Social History Tobacco Use Types Packs/Day Years [...] Visit [facility] [address] Ebony [address] [place] [phone] Bereket Billings MD [address] [place] [address] [place] [address] documented as of this encounter Visit Diagnoses Not on filedocumented in this encounter Care Teams Prospect Manager Relationship Specialty Start Date End Date Yared Kam DO [address] [place] [address] PCP - General 01/27/19 documented as of this encounter
--- OUTSIDE RECORDS SUMMARY | 2024-06-23 16:24 | XMS_ITS | Clinical Summary ---
Author Organization [facility] Address [address] [place] [address] Care Team Providers Care Digital Sales Assistant Name Role Phone Yared Kam DO Primary Care Provider Allergies Active Allergy Reactions Criticality Noted Date Comments Codeine Nausea And Vomiting 08/22/2022 Meperidine Anaphylaxis High 08/22/2022 Iodine Rash Low 08/22/2022 Penicillins Anaphylaxis High 08/22/2022 Medications Medication Sig Dispensed Refills Start Date End Date Status albuterol 108 (90 Base) MCG/ACT inhaler albuterol sulfate HFA 90 mcg/actuation aerosol inhaler INHALE 2 PUFFS INTO THE LUNGS EVERY 4 HOURS NEEDED FOR WHEEZING OR SHORTNESS OF BREATH OR DIFFICULT BREATHING 0 04/17/2021 Active allopurinol (ZYLOPRIM) 100 MG tablet Take 1 tablet (100 mg total) by mouth daily. 0 08/13/2022 Active Alpha-Lipoic Acid 300 MG CAPS Take 300 mg by mouth. 0 Active amLODIPine (NORVASC) tablet 5 mg amlodipine 5 mg tablet 0 03/13/2022 Active aspirin 81 MG EC tablet Take 1 tablet (81 mg total) by mouth. 0 03/13/2022 Active atorvastatin (LIPITOR) tablet 40 mg Take 1 tablet (40 mg total) by mouth daily. 0 07/27/2022 Active b complex vitamins capsule Take 1 capsule by mouth. 0 Active buPROPion (WELLBUTRIN SR) 150 MG 12 hr tablet bupropion HCl SR 150 mg tablet,12 hr sustained-release TAKE 1 TABLET BY MOUTH EVERY 12 HOURS 0 02/04/2017 Active Evpqjxnplo-MQWL-Ughk eine 50-300-40 MG CAPS butalbital-acetamino phen-caffeine 50 mg-300 mg-40 mg capsule TAKE 1 CAPSULE BY MOUTH IF NEEDED FOR MIGRAINE 0 Active chorionic gonadotropin (PREGNYL) 51024 units injection 0 08/23/2022 Active Coenzyme Q10 100 MG capsule Take 100 mg by mouth. 0 Active empagliflozin (Jardiance) 10 MG tablet Jardiance 10 mg tablet TAKE 1 TABLET BY MOUTH 1 TIME DAILY 30 MINUTES AFTER THE SAME MEAL FOR 90 DOSES 0 05/16/2020 Active erenumab-aooe (Aimovig) SOAJ Aimovig Autoinjector 140 mg/mL subcutaneous auto-injector 0 Active esomeprazole (NexIUM) capsule 20 mg 1 capsule Orally Once a day 0 02/20/2022 Active Fluticasone Furoate-Vilanterol 200-25 MCG/ACT AEPB Inhale 1 puff into the lungs. 0 01/24/2022 Active hydrocortisone 2.5 % cream hydrocortisone 2.5 % topical cream 0 Active metFORMIN (GLUCOPHAGE) tablet 500 mg metformin 500 mg tablet TAKE 1 TABLET BY MOUTH TWICE DAILY 0 02/20/2022 Active potassium citrate (UROCIT-K) 10 MEQ (1080 MG) SR tablet potassium citrate ER 10 mEq (1,080 mg) tablet,extended release TAKE 1 TABLET BY MOUTH EVERY MORNING AND TAKE 2 EVERY EVENING DO NOT CRUSH CHEW OR SPIT 0 09/22/2013 Active rivaroxaban (Xarelto) 15 MG TABS tablet Xarelto 15 mg tablet 0 07/27/2022 Acti ve Sodium Fluoride 5000 Plus 1.1 % CREA USE TO BRUSH TEETH TWICE DAILY 0 06/08/2022 Active tadalafil (CIALIS) 5 MG tablet tadalafil 5 mg tablet TAKE 1 TABLET BY MOUTH EVERY DAY 0 03/15/2020 Active tamsulosin (FLOMAX) 0.4 MG CAPS Take 1 capsule (0.4 mg total) by mouth daily. 0 08/02/2022 Active zolpidem (AMBIEN) 10 MG tablet Take 1 tablet (10 mg total) by mouth. 0 03/14/2017 Active testosterone undecanoate (Aveed) 750 MG/3ML intramuscular injection Aveed 750 mg/3 mL (250mg/mL) intramuscular solution 0 02/20/2022 Active Active Problems Problem Noted Date Diagnosed Date Anemia 08/21/2022 Social History Tobacco Use Types Packs/Day Years Used Date Smoking Tobacco: Never Assessed Sex and Gender Information Value Date Recorded Sex Assigned at Male 08/17/2022 12:17 PM EDT Gender Identity Male 08/22/2022 1:39 PM EDT Sexual Orientation Straight 08/22/2022 1: 39 PM EDT Job Start Date Occupation Industry Not on file Not on file Not on file Last Filed Vital Signs Vital Sign Reading Time Taken Comments Blood Pressure 143/67 10/23/2022 1:20 PM EDT Pulse 65 10/23/2022 1:20 PM EDT Temperature 36.4 ??C (97.5 ??F) 10/23/2022 1:20 PM ED T Respiratory Rate 16 08/29/2022 2:00 PM EDT Oxygen Saturation 99% 10/23/2022 1:20 PM EDT Inhaled Oxygen Concentration - - Weight - - Height - - Body Mass Index - - Plan of Treatment Health Maintenance Due Date Last Done Comments Hepatitis C Screening 1945 Depression Screening 1959 Preventative Health Evaluation 11/19/1965 DTap / Tdap / Td (1 - Tdap) 11/19/1966 Fall Risk Assessment 11/19/2012 Pneumococcal Vaccine (2 of 2 - PCV) 01/17/2017 01/18/2016 Shingrix-Zoster Vaccine (2 of 2) 04/08/2020 02/12/2020, 02/12/2020 RSV Adult > 60+ Yrs or (1 - 1-dose 75+ series) 11/19/2022 COVID-19 Vaccine (3 - season) 2023 05/25/2020, 05/04/2020 Influenza Vaccine (#1) 2023 , 01/18/2020, 01/05/2019, Additional history exists Hepatitis B Vaccines Aged Out No long er eligible based on patient's age to complete this topic RSV Ped < 20 months Aged Out No longe r eligible based on patient's age to complete this topic Care Teams Digital Sales Assistant Relationship Specialty Start Date End Date Yared Kam DO [address] [place] [address] PCP - General Internal Medicine 08/21/22
--- OUTSIDE RECORDS SUMMARY | 2024-06-23 16:24 | XMS_ITS | Clinical Summary ---
Author Organization [facility], Address [address] [place] [address] [place] [address] Phone Care Team Providers Care Threshing Operator Name Role Phone Yared Kam DO Primary Care Provider [phone] Allergies Active Allergy Reactions Criticality Noted Date Comments Butenafine Rash Medium 08/16/2021 Lotrimin Ultra Butenafine Hcl Rash Low 01/11/2021 Clotrimazole 01/08/2024 Codeine 07/17/2019 Iodinated Contrast Media 07/17/2019 Iodine 11/03/2020 Lisinopril 07/17/2019 Meperidine 07/17/2019 Neomycin 08/16/2021 Other 11/03/2020 Oxycodone 07/29/2020 Penicillins 07/17/2019 Oxycodone-Acetaminophen 07/17/2019 Rosuvastatin Other (see comments) 02/13/2022 Shellfish-Derived Products 07/17/2019 Medications allopurinol (ZYLOPRIM) 100 MG tablet Take 100 mg by mouth 1 (one) time each day Active Alpha-Lipoic Acid 300 MG capsule Take 300 mg by mouth 1 (one) time each day Active Testosterone 20.25 MG/1.25GM (1.62%) gel Place 4 Pump on the skin 1 (one) time each day Active aspirin 81 MG tablet Take 81 mg by mouth 1 (one) time each day Active buPROPion SR (WELLBUTRIN SR) 150 MG 12 hr tablet Take 150 mg by mouth 2 (two) times a day Active CHORIONIC GONADOTROPIN IJ 3 (three) times a week Active Coenzyme Q10 (COQ10) 100 MG capsule Take 100 mg by mouth 1 (one) time each day Active atorvastatin (LIPITOR) 80 MG tablet Take 80 mg by mouth 1 (one) time each day Active losartan (COZAAR) 100 MG tablet Take 100 mg by mouth 1 (one) time each day Active Multiple Vitamin (MULTIVITAMIN) tablet Take 1 tablet by mouth 1 (one) time each day Active esomeprazole (NexIUM) 20 MG packet Take 20 mg by mouth 1 (one) time each day Active budesonide (PULMICORT) 180 MCG/ACT inhaler Inhale 2 puffs 2 (two) times a day Active tamsulosin (FLOMAX) 0.4 MG 24 hr capsule Take 0.4 mg by mouth 1 (one) time each day Active b complex vitamins capsule Take 1 capsule by mouth 1 (one) time each day Active Jardiance 10 MG tablet TAKE 1 TABLET BY MOUTH EVERY DAY 30 tablet 2 2 Active losartan (Cozaar) 100 MG tablet Take 1 tablet (100 mg total) by mouth 1 (one) time each day 30 tablet 11 2 Active potassium citrate 10 MEQ (1080 MG) CR tablet Take 1 tablet by mouth in the morning and 2 tablets by mouth in the evening 270 tablet 3 4 Active Empagliflozin (Jardiance) 10 MG tablet Take 10 mg by mouth 1 (one) time each day 90 tablet 3 4 Active Hospital, Clinic, or Other Facility Administered Medication Ordered Dose Route Frequency Start Date End Date Status iron sucrose (VENOFER) injection 300 mgIndications: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 300 mg IV Once in dialysis 07/11/2022 Active Active Problems Problem Noted Date Diagnosed Date Other iron deficiency anemia 07/11/2022 Essential hypertension 11/30/2021 Stage 3b chronic kidney disease 11/30/2021 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 hy Serum creatinine above reference range Peripheral vascular disease Nephrolithiasis Hyperlipidemia Edema Anemia Immunizations Name Administration Dates Next Due Influenza Split High Dose Pr eservative Free IM 12/30/2018,12/30/2018,11/27/2017,01/02,12/10/2015,01/13/2015 Influenza Vaccine, Quadrival ent, Adjuvanted 12/15/2020,01/18/2020 Influenza, Quadrivalent, Wit h Preservative 01/05/2019,01/05/2019,11/27/2017,11/27 Influenza, Trivalent, Adjuvanted 12/08/2015 Influenza, Unspecified 12/15/2020,02/16/2011 Pfizer SARS-COV-2 05/25/2020,,05/04/2020,05/04 Pneumococcal Polysaccharide 01/18/2016 Zoster 02/12/2020 Family History Medical History Relation Comments Coronary artery disease Father Heart attack Father Hyperlipidemia Father Hypertension Father Lymphoma Father Nephrolithiasis Father COPD Mother Coronary artery disease Mother Diabetes Mother Heart attack Mother Hypertension Mother Diabetes Paternal Grandmother Hypertension Sibling Melanoma Sibling Relation Status Comments Father Mother Paternal Grandmother Sibling Social History Tobacco Use Types Packs/Day Years [...] Orientation Straight 01/06/2024 3: 41 PM EDT Last Filed Vital Signs Vital Sign Reading Time Taken Comments Blood Pressure 140/70 07/20/2019 11:11 AM EDT Pulse - - Temperature - - Respiratory Rate - - Oxygen Saturation - - Inhaled Oxygen Concentration - - Weight 104 kg (230 lb) 07/20/2019 11:11 AM EDT Height 177.8 cm (5' 10 ) 02/23/2019 12:00 PM EST Body Mass Index 33 02/23/2019 12:00 PM EST Plan of Treatment Upcoming Encounters Date Type Department Care Team (Late st Contact Info) Description 07/09/2024 2:15 PM EDT Office Visit [facility] [address] [place] [address] Bereket Billings MD [address] [facility] [address] [facility] [place] [phone] Health Maintenance Due Date Last Done Comments Pneumococcal Vaccine: 65+ Years (2 of 2 - PCV) 01/17/2017 01/18/2016 Diabetes: Ophthalmology Exam 06/12/2019 Diabetes: Pedal Pulse Checked 06/12/2019 Diabetes: Sensory Foot Exam 06/12/2019 Diabetes: Visual Foot Exam 06/12/2019 Diabetes: Hemoglobin A1C 10/14/2023 024, 01/15/2023, 10/12/2022, Additional history exists Influenza Vaccine (#1) 2023 1, 12/15/2020, 01/18/2020, Additional history exists Hepatitis B Vaccine Aged Out No longe r eligible based on patient's age to complete this topic Procedures Procedure Name Priority Date/Time Associated Diagnosis Comments HEMOGLOBIN A1C Routine 07/15/2023 1:33 PM EDT 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hy (HCC) Other iron deficiency anemia Peripheral vascular disease (HCC) Nephrolithiasis Other hyperlipidemia Essential hypertension Stage 3b chronic kidney disease (HCC) Edema, not otherwise specified Routine general medical examination at a [facility] care facility from Last 3 Months or Most Recently Relevant to Health Maintenance Results * (ABNORMAL) Hemoglobin A1c (07/15/2023 1:33 PM EDT) Hemoglobin A1C 5.9(H) 4.8 - 5.6 % See order comments Comment: ? Prediabetes: 5.7 - 6.4 ? Diabetes: >6.4 ? Glycemic control for adults with diabetes: <7.0 Blood (Blood, Venous) 07/15/2023 1:33 PM EDT 07/15/2023 Narrative [facility] - 07/16/2023 9:07 AM EDT Performed at: ??01 - [facility] [address] ??[id number] Belt Machine Operator: Kathleen Hyman MD, Phone: ??[phone] us Jose Newell MD LAB BLOOD ORDERABLES Final Res ult [facility] See order comments [place] [address] from Last 3 Months or Most Recently Relevant to Health Maintenance Insurance MEDICARE [facility] Care Teams Threshing Operator Relationship Specialty Start Date End Date Yared Kam DO [address] [facility] [address] PCP - General 01/27/19
--- OUTSIDE RECORDS SUMMARY | 2024-06-23 16:24 | XMS_ITS | Encounter Summary ---
Author Organization [facility], Address [address] [place] [address] Phone Care Team Providers Care Track Equipment Operator Name Role Phone Yared Kam DO Primary Care Provider [phone] Encounter Details Date Type Department Care Team (Late st Contact Info) Description 01/08/2024 Documentation Only [facility] Lele [address] [place] [address] Ann Ruvalcaba [address] [place] [phone] Social History Tobacco Use Types Packs/Day Years [...] Visit [facility] Lele [address] [place] [address] Bereket Billings MD [address] [place] [phone] documented as of this encounter Visit Diagnoses Not on filedocumented in this encounter Care Teams Track Equipment Operator Relationship Specialty Start Date End Date Yared Kam DO [address] [place] [address] PCP - General 01/27/19 documented as of this encounter
--- OUTSIDE RECORDS SUMMARY | 2024-06-23 16:24 | XMS_ITS | Encounter Summary ---
Author Organization [facility], Address [address] [place] [address] Phone Care Team Providers Care Prepress Manager Name Role Phone Yared Kam DO Primary Care Provider [phone] Encounter Details Date Type Department Care Team (Late st Contact Info) Description 08/25/2021 Documentation Only [facility] [address] [place] [address] Angelica De Leon [address] [place] [phone] Social History Tobacco Use Types Packs/Day Years [...] [facility] [address] Ebony [address]ANNON [address] [place] [phone] Bereket Billings MD [address] [place] [address] [place] [phone] documented as of this encounter Visit Diagnoses Not on filedocumented in this encounter Care Teams Prepress Manager Relationship Specialty Start Date End Date Yared Kam DO [address] [facility] [place] [place] [address] PCP - General 01/27/19 documented as of this encounter
--- OUTSIDE RECORDS SUMMARY | 2024-06-23 16:24 | XMS_ITS | Encounter Summary ---
Author Organization [facility] [place], Address [address] [place] [address] Phone Care Team Providers Care Rescue Worker Name Role Phone Yared Kam DO Primary Care Provider [phone] Encounter Details Date Type Department Care Team (Late st Contact Info) Description 10/15/2022 Documentation Only [facility] [address] [place] [address] Angelica De Leon [address] [place] [phone] Social History Tobacco Use Types Packs/Day Years [...] Visit [facility] [address] Ebony HANNON [address] [place] [phone] Bereket Billings MD [address] [place] [address] [place] [phone] documented as of this encounter Visit Diagnoses Not on filedocumented in this encounter Care Teams Rescue Worker Relationship Specialty Start Date End Date Yared Kam DO [address] [facility] [place] [address] PCP - General 01/27/19 documented as of this encounter
--- OUTSIDE RECORDS SUMMARY | 2024-06-23 16:24 | XMS_ITS | Encounter Summary ---
Author Organization [facility] [place], Address [address] [place] [address] Phone Care Team Providers Care Vending Stand Supervisor Name Role Phone Yared Kam DO Primary Care Provider [phone] Encounter Details Date Type Department Care Team (Late st Contact Info) Description 09/10/2023 Documentation Only [facility] [address] [place] [address] Angelica De Leon [address] [place] [phone] Social History Tobacco Use Types Packs/Day Years [...] Visit [facility] [place] [address] Ebony HANNON [address] [place] [phone] Bereket Billings MD [address] [place] [address] [place] [phone] documented as of this encounter Visit Diagnoses Not on filedocumented in this encounter Care Teams Vending Stand Supervisor Relationship Specialty Start Date End Date Yared Kam DO [address] [facility] [place] [address] PCP - General 01/27/19 documented as of this encounter
--- OUTSIDE RECORDS SUMMARY | 2024-06-23 16:24 | XMS_ITS | Data Portability ---
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 2 OUT OF 3 ELEMENTS: PROBLEMS, DATA OR RISK ELEMENT 1: PROBLEMS ADDRESSED 1 OR MORE CHRONIC ILLNESS WITH EXACERBATION OR 2 OR MORE STABLE CHRONIC ILLNESSES OR 1 UNDIAGNOSED NEW PROBLEM OR 1 ACUTE ILLNESS W/SYMPTOMS OR 1 ACUTE COMPLICATED INJURY ELEMENT 2: DATA MUST MEET 1 OF 3 CATEGORIES CATEGORY 1: REVIEW OF PRIOR EXTERNAL NOTES, REVIEW OF RESULTS, ORDERING OF EACH TEST, ASSESSMENT REQUIRING INDEPENDENT HISTORIAN OR CATEGORY 2: INDEPENDENT INTERPRETATION OF TESTS BY ANOTHER PHYSICIAN OR SPECIALIST OR CATEGORY 3: DISCUSSION OF MGT OR TEST INTERPRETATION W/EXTERNAL PHYSICIAN OR SPECIALIST ELEMENT 3: RISK RISK OF COMPLICATIONS AND/OR MORBIDITY OR MORTALITY OF PATIENT MANAGEMENT PROVIDER MUST THOROUGHLY DOCUMENT EACH ELEMENT THAT IS COVERED Not available 09/24/2023 14:45:26 10/25/2023 10/25/2023 [id number] [place] [id number]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 REVIEW OF PRIOR EXTERNAL NOTES/RESULTS, ORDERING OF TEST(S) CATEGORY 2. 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 REVIEW OF PRIOR EXTERNAL NOTES/RESULTS, ORDERING OF TEST(S) CATEGORY 2. 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 2 OUT OF 3 ELEMENTS: PROBLEMS, DATA OR RISK ELEMENT 1: PROBLEMS ADDRESSED 1 OR MORE CHRONIC ILLNESS WITH EXACERBATION OR 2 OR MORE STABLE CHRONIC ILLNESSES OR 1 UNDIAGNOSED NEW PROBLEM OR 1 ACUTE ILLNESS W/SYMPTOMS OR 1 ACUTE COMPLICATED INJURY ELEMENT 2: DATA MUST MEET 1 OF 3 CATEGORIES CATEGORY 1: REVIEW OF PRIOR EXTERNAL NOTES, REVIEW OF RESULTS, ORDERING OF EACH TEST, ASSESSMENT REQUIRING INDEPENDENT HISTORIAN OR CATEGORY 2: INDEPENDENT INTERPRETATION OF TESTS BY ANOTHER PHYSICIAN OR SPECIALIST OR CATEGORY 3: DISCUSSION OF MGT OR TEST INTERPRETATION W/EXTERNAL PHYSICIAN OR SPECIALIST ELEMENT 3: RISK RISK OF COMPLICATIONS AND/OR MORBIDITY OR MORTALITY OF PATIENT MANAGEMENT PROVIDER MUST THOROUGHLY DOCUMENT EACH ELEMENT THAT IS COVERED Not available 12/18/2023 11:19:29 Plan of Treatment Reminders Order Date Submit Date Provider Last Modified By Organization Details Last Modified Time Details Appointments MEDICARE ANNUAL WELLNESS 2024 01:30P M DR SCHMIDT Not available Not available Not available Lab ferritin, serum or plasma 2023 024 [facility], [address] [place] [address], [place], [address], 02/05/2024 12:01:38 TSH + free T4, serum 2023 024 [facility], [address] [place] [address], [id number], 02/05/2024 12:01:38 vitamin B12 + folate, serum or blood 2023 [facility], [address] [place] [address], [id number], 02/05/2024 12:01:39 CBC w/ auto diff 2023 [facility], [address] [place] [address], [id number], 02/05/2024 12:01:39 iron + TIBC + ferritin, serum 2023 [facility], [address] [place] [address], [id number], 02/05/2024 12:01:39 CMP, serum or plasma 2023 [facility], [address] [place] [address], [id number], 02/06/2024 11:33:48 vitamin D, 25-hydrox y, total, serum 2023 [facility], [address] [place] [address], [id number], 02/11/2024 11:22:48 ESR (erythroc yte sedimenta tion rate), blood 2023 [facility], [address] [place] [address], [id number], 02/05/2024 12:01:39 C-reactiv e protein, quantitat emely, serum or plasma 2023 [facility], [address] [place] [address], [id number], 02/05/2024 12:01:39 ige, total, serum 2023 [facility], [address] [facility], [place], [address], 02/07/2024 12:37:30 vitamin B12 + folate, serum or blood 2023 [facility], [address] [facility], [place], [address], 10/28/2023 11:10:08 TSH + free T4, serum 2023 [facility], [address] [facility], [place], [address], 10/28/2023 11:10:08 Referral None recorded. Procedures suture removal (PROC) 2023 hrubner Not available 11/01/2023 09:46:48 Surgeries None recorded. Imaging None recorded. Medication Orders bupropion HCl SR 200 mg tablet,12 hr sustained -release 2023 [id number], [address], [place], [id number], 10/25/2023 11:26:54 Patient TargetsNo targets recorded. Patient Instructions Encounter Date Encounter Id Patient Instructions Last Modified By Organization Details Last Modified Time 12/18/2023 [id number] lightheadedness or faintness: care instructions Not available 12/18/2023 11:24:40 pulse oximetry* Not available 12/18/2023 11:24:49 learning about asthma Not available 12/18/2023 11:24:40 learning about t ype 2 diabetes Not available 12/18/2023 11:24:40 type 2 diabetes: care instructions Not available 12/18/2023 11:24:40 iron deficiency anemia: care instructions Not available 12/18/2023 11:24:40 Reason for Referral None Reported. Results Created Date Observation Date Name Description Value Unit Range Abnormal Flag Note LastModifiedBy Organization Detail LastModifiedTime 12/18/1912/18/2023 pulse oxime try* Result 97 Not Available [facility] [address] [facility] [address], [place], [address], 12/16/2023 11:25:07 Result Notes None recorded. Problems Name Problem SNOMED Code Status Onset Date Resolution Date Notes Provider Name and Address Organization Details Recorded Time Chronic kidney disease stage 3B 594959852 Active 2021 Yared Schmidt, [address] [facility], [place], [address], [facility] 2 23:13:54 Gout 77510711 Active 2021 Sun blackman, [facility] 5 11:11:17 Polymyalg ia rheumatic a 98975608 Active 2021 Sun blackman [facility] 5 11:11:17 Multiple actinic keratoses 652727987 Active 2021 Sun blackman, [facility] 5 11:11:17 Iron deficienc y anemia 97949470 Active 2021 Sun blackman, [facility] 5 11:11:17 Lyme disease 23537834 Active 2021 Sun blackman [facility] 5 11:10:38 Headache 03216312 Active 2021 Sun blackman, [facility] 5 11:10:38 Shoulder joint pain 342630746 Active 2021 Sun blackman, [facility] 5 11:10:38 Migraine 33573712 Active 2021 Sun blackman, [facility] 5 11:10:38 Multiple joint pain 70513689 Active 2021 Sun blackman, [facility] 5 11:11:17 Memory impairmen t 273330735 Active 2021 Sun blackman [facility] 5 11:11:17 Hearing loss 44363551 Active 2021 Sun Edgar null, [facility] 5 11:11:17 Dysphagia 44104521 Active 2022 Sunlorenzo Edgar null, [facility] 5 11:11:17 Altered bowel function 39269804 Active 2022 Sun Edgar null, [facility] 5 11:11:17 Abdominal pain 83975456 Active 2022 Sun Edgar null, [facility] 5 11:10:38 Toothache 68628447 Active 2022 Sun Edgar null, [facility] 5 11:10:38 Diarrhea 99468615 Active 2022 Sun Edgar null, [facility] 5 11:10:38 Lemierre syndrome Active 2022 Sun Edgar null, [facility] 5 11:11:17 Thrombosi s of internal jugular vein 476211035710 1 Active 2022 Sun Edgar null, [facility] 5 11:11:17 Herpes labialis 0046002 Active 2022 Sun Edgar null, [facility] 5 11:10:38 Dermatoph ytosis 26988523 Active 2023 Sun Edgar null, [facility] 5 11:11:17 Impacted cerumen of bilateral ears 680185126882 9108 Active 2023 Sun Edgar null, [facility] 5 11:10:38 Iron deficienc y 56867873 Active 2023 Sun Edgar null, [facility] 5 11:11:17 Laceratio n of left hand 626448542246 49083 Active 2023 Sun Edgar null, [facility] 5 11:10:38 Acute depressio n 690341101 Active 2023 [facility] 5 11:10:38 Lighthead edness 117793661 Active 2023 [facility] 5 11:10:38 Chronic hoarsenes s 570804016297 5 Active 2023 [facility] 5 11:11:17 Fatigue 98277396 Active 2023 Sun Drew [facility] 5 11:10:38 Hypotensi ve episode 57429152 Active 2023 [facility] 5 11:11:17 Diverticu litis 473489273 Active 2017 Sunlorenzo Edgar [facility] 5 11:11:17 Gastroeso phageal reflux disease 402725273 Active 2017 [facility] 5 11:11:17 Irritable bowel syndrome 95834921 Active 2017 [facility] 5 11:11:17 Type 2 diabetes mellitus 68457707 Active 2017 [facility] 5 11:11:17 Atheroscl erosis of coronary artery without angina pectoris 163053187682 103 Active 2017 [facility] 5 11:11:17 History of calculus of kidney 353123761 Active 2017 [facility] 5 11:11:17 Asthma 025406026 Active 2017 [facility] 5 11:11:17 Obstructi ve sleep apnea syndrome 38079452 Active 2017 [facility] 5 11:11:17 Depressiv e disorder 55339392 Active 2017 [facility] 5 11:11:17 Impotence Active 2017 [facility] 5 11:10:38 Obesity 084253549 Active 2017 [facility] 5 11:11:17 Hypogonad ism 24700374 Active 2017 [facility] 5 11:11:17 Essential hypertens ion 22013747 Active 2017 [facility] 5 11:11:17 Mixed hyperlipi demia 279774829 Active 2017 [facility] 5 11:11:17 Notes:Some problems listed i n Documents: #[id number], #[id number], #[id number], #[id number], #[id number], #[id number], #[id number], #[id number], #[id number], #[id number], #[id number], #[id number], #[id number], #[id number] could not be added to this patient's chart. Please review these documents and add these problems to the patient's chart manually as needed. Problem Notes None recorded. Procedures Surgical History Date Name Laterality Status Provider Name and Address Organization Details Recorded Time 05/24/19 16 Colonoscopy completed Gabbie Sheffield [facility] 05/27/2019 09:34:13 Fragmenting of kidney stone completed June Moni [address], [address], [facility] 07/17/2017 08:05:37 Imaging Results None recorded. Procedure Notes None recorded. Medical Equipment None Reported. Allergies Allergen ID Allergen Name Allergen Category Reaction Reaction Severity Criticality Documentation Date Start Date Code Code System Note Provider Name and Address Organization Details Recorded Time 3569 Product containin g penicilli n (product) medicatio n Not available Not available Not available 01/23/2019 84379 3102 SNOMED Yared Schmidt DO [address] [place] [address], [address], [facility] 9 15:27:23 3718 Non-stero idal anti-infl ammatory agent (product) medicatio n Not available Not available Not available 04/28/2019 63746 005 [facility]ED [facility] 0 11:13:11 4482 bacitraci n / neomycin / polymyxin B medicatio n Not available Not available Not available 08/03/2020 33743 9 RxNorm Yared Schmidt, DO [address] [place], [address], [facility] 1 10:19:07 4483 iodine medicatio n Not available Not available Not available 08/03/2020 5933 RxNorm Yared Schmidt, DO [address] [place], [address], [facility] 1 10:19:15 5552 butenafin e medicatio n rash moderate Not available 05/23/2021 08511 RxNorm Jayla Rashida [facility] 2 16:05:43 Medications Name Sig Start Date Stop Date Status Note LastModified by Organization Details LastModified Time losartan 50 mg tablet TAKE 1 TABLET BY MOUTH EVERY DAY active Not Available Not Available No t Available atorvastati n 40 mg tablet TAKE 1 TABLET BY MOUTH EVERY DAY 09/02 completed Not Available Not Available Not Available metformin 500 mg tablet TAKE 1 TABLET BY MOUTH TWICE DAILY active Not Available Not Available No t Available Augmentin 875 mg-125 mg tablet Take 1 tablet every 12 hours by oral route for 10 days. 05/23 completed Not Available Not Available Not Available bupropion HCl SR 150 mg tablet,12 hr sustained-r elease TAKE 1 TABLET BY MOUTH EVERY 12 HOURS active Not Available Not Available No t Available atorvastati n 80 mg tablet take 1 tablet by mouth once daily active Not Available Not Available No t Available prednisone 10 mg tablet Take 4 tabs for 3 days, then 3 tabs for 3 days, then 2 tabs for 3 days, and then 1 tab for 3 days. 06/26 completed Not Available Not Available Not Available doxycycline hyclate 100 mg capsule TAKE ONE CAPSULE BY MOUTH TWICE DAILYFOR 21 DAYS. TAKE WITH A FULL GLASS OF WATER. DO NOT LE DOWN FOR 30 MINUTES 06/26 completed Not Available Not Available Not Available atorvastati n 20 mg tablet 09/02 completed Not Available Not Available Not Available azithromyci n 250 mg tablet TAKE 2 TABLETS BY MOUTH FOR 1 DAY THEN TAKE 1 TABLET BY MOUTH EVERY DAY FOR 4 DAYS active Not Available Not Available No t Available cefpodoxime 100 mg tablet TAKE 1 TABLET BY MOUTH TWICE DAILY 09/02 completed Not Available Not Available Not Available ofloxacin 0.3 % eye drops INSTILL 1 DROP INTO LEFT EYE FOUR TIMES DAILY 12/15 completed Not Available Not Available Not Available valacyclovi r 1 gram tablet TAKE 1 TABLET BY MOUTH TWICE DAILY FOR 7 DAYS active Not Available Not Available No t Available Nystop 100,000 unit/gram topical powder APPLY TO THE AFFECTED AREA(S) BY TOPICAL ROUTE 2 TIMES PER DAY active Not Available Not Available No t Available isosorbide mononitrate ER 30 mg tablet,exte nded release 24 hr 09/02 completed Not Available Not Available Not Available fluorouraci l 5 % topical cream APPLY TWO TIMES A DAY TO ACTINIC KERATOSES ON THE FRONTAL AND VERTEXT SCALP FOR 2 TO 6 WEEKS UNTIL VERY RED AND CRUSTED THEN STOP 09/02 completed Not Available Not Available Not Available prednisone 5 mg tablet TAKE 1 TABLET BY MOUTH EVERY DAY 05/23 completed Not Available Not Available Not Available metronidazo le 250 mg tablet TAKE 1 TABLET BY MOUTH THREE TIMES DAILY FOR 7 DAYS 09/02 completed Not Available Not Available Not Available metronidazo le 500 mg tablet 08/03 completed Not Available Not Available Not Available amlodipine 5 mg tablet 09/02 completed Not Available Not Available Not Available allopurinol 100 mg tablet TAKE 1 TABLET BY MOUTH DAILY active Not Available Not Available No t Available ciprofloxac in 500 mg tablet TAKE 1 TABLET BY MOUTH EVERY 12 HOURS FOR 10 DAYS 05/23 completed Not Available Not Available Not Available sulfamethox azole 800 mg-trimetho prim 160 mg tablet 08/03 completed Not Available Not Available Not Available aspirin 81 mg tablet,eloy yed release TAKE 1 TABLET BY MOUTH DAILY 06/26 completed Not Available Not Available Not Available butalbital- acetaminoph en-caffeine 50 mg-325 mg-40 mg tablet TAKE 1 TABLET BY MOUTH THREE TIMES DAILY FOR 7 DAYS NEEDED active Not Available Not Available No t Available carvedilol 3.125 mg tablet TAKE 1 TABLET BY MOUTH TWICE DAILY active Not Available Not Available No t Available losartan 100 mg-hydrochl orothiazide 25 mg tablet Take 1 tablet every day by oral route. 08/03 completed Not Available Not Available Not Available triamcinolo ne acetonide 0.025 % topical cream APPLY EXTERNALL Y TO THE AFFECTED AREA TWICE DAILY FOR SKIN RASH 09/02 completed Not Available Not Available Not Available tamsulosin 0.4 mg capsule TAKE 1 CAPSULE BY MOUTH AT BEDTIME active Not Available Not Available No t Available prednisone 1 mg tablet TAKE 4 TABLET BY MOUTH EVERY DAY 11/07 completed Not Available Not Available Not Available amlodipine 10 mg tablet TAKE 1 TABLET BY MOUTH EVERY NIGHT AT BEDTIME 12/17 completed Not Available Not Available Not Available potassium citrate ER 10 mEq (1,080 mg) tablet,exte nded release TAKE 1 TABLET BY MOUTH IN THE MORNING AND 2 TABLETS BY MOUTH IN THE EVENING active Not Available Not Available No t Available doxycycline monohydrate 100 mg capsule 09/02 completed Not Available Not Available Not Available chorionic gonadotropi n, human 10,000 unit IM powder for solution active Not Available Not Available Not Available prednisone 2.5 mg tablet Take 1 tablet every day by oral route for 90 days. 08/03 completed Not Available Not Available Not Available cephalexin 500 mg capsule 09/02 completed Not Available Not Available Not Available oseltamivir 75 mg capsule 05/26 completed Not Available Not Available Not Available metformin 1,000 mg tablet TK 1 T PO BID 08/03 completed Not Available Not Available Not Available olopatadine 0.1 % eye drops 08/03 completed Not Available Not Available Not Available metronidazo le 0.75 % topical cream 01/23 completed Not Available Not Available Not Available losartan 25 mg tablet 09/02 completed Not Available Not Available Not Available nitroglycer in 0.4 mg sublingual tablet DISSOLVE 1 TABLET BY MOUTH UNDER THE TONGUE EVERY 5 MINUTES NEEDED FOR CHEST PAIN 09/02 completed Not Available Not Available Not Available hydrocortis one 2.5 % topical cream active Not Available Not Available Not Available bisacodyl 5 mg tablet,eloy yed release TAKE 4 TABLETS NEEDED DIRECTED 09/02 completed Not Available Not Available Not Available mupirocin 2 % topical ointment APPLY TO SITES TREATED WITH LIQUID NITROGEN TWICE A DAY UNTIL HEALED 10/24 completed Not Available Not Available Not Available furosemide 20 mg tablet 01/23 completed Not Available Not Available Not Available epinephrine 0.3 mg/0.3 mL injection, auto-inject or INJECT 0.3ML INTO MUSCLE NEEDED FOR ANAPHYLAX IS active Not Available Not Available No t Available zolpidem 10 mg tablet Take 1 tablet every day by oral route as needed for 30 days. 08/03 completed Not Available Not Available Not Available ketoconazol e 2 % topical cream 01/23 completed Not Available Not Available Not Available losartan 100 mg tablet take 1 tablet by mouth once daily 03/31 completed Not Available Not Available Not Available doxycycline hyclate 100 mg tablet TAKE 1 TABLET BY MOUTH TWICE DAILY FOR 11 DAYS 12/15 completed Not Available Not Available Not Available Ventolin HFA 90 mcg/actuati on aerosol inhaler INHALE 2 PUFFS INTO THE LUNGS EVERY 4 HOURS NEEDED FOR WHEEZING OR SHORTNESS OF BREATH OR DIFFICULT BREATHING active Not Available Not Available No t Available bupropion HCl SR 200 mg tablet,12 hr sustained-r elease TAKE 1 TABLET BY MOUTH TWICE DAILY active Not Available Not Available No t Available rosuvastati n 40 mg tablet TAKE 1 TABLET BY MOUTH EVERY DAY 12/15 completed Not Available Not Available Not Available tadalafil 5 mg tablet TAKE 1 TABLET BY MOUTH EVERY DAY active Not Available Not Available No t Available escitalopra m 5 mg tablet TAKE 1 TABLET BY MOUTH EVERY DAY active Not Available Not Available No t Available lactulose 10 gram/15 mL oral solution TAKE 15 ML BY MOUTH ONCE 09/02 completed Not Available Not Available Not Available losartan 100 mg-hydrochl orothiazide 12.5 mg tablet take 1 tablet by mouth once daily 08/03 completed Not Available Not Available Not Available HCG 3cc three times per week active Not Available Not Available No t Available hydrochloro thiazide 12.5 mg tablet Take 1 tablet every day by oral route for 90 days. 08/03 completed Not Available Not Available Not Available Pulmicort Flexhaler 180 mcg/actuati on breath activated INHALE 2 PUFFS BY MOUTH EVERY MORNING 06/08 completed Not Available Not Available Not Available peg 3350-electr olytes 236 gram-22.74 gram-6.74 gram-5.86 gram solution MIX AND DRINK DIRECTED 09/02 completed Not Available Not Available Not Available FreeStyle Lite Strips Take 1 strip twice a day by miscell. route. 2019 active Not Available Not Available Not Avai lable diclofenac 1 % topical gel 08/03 completed Not Available Not Available Not Available butalbital- acetaminoph en-caffeine 50 mg-300 mg-40 mg capsule TAKE 1 CAPSULE BY MOUTH IF NEEDED FOR MIGRAINE 02/04 completed Not Available Not Available Not Available testosteron e 20.25 mg/1.25 gram per pump act.(1.62 %) transdermal gel APPLY 4 PUMPS TOPICALLY TO THE AFFECTED AREA DAILY 11/07 completed Not Available Not Available Not Available Xarelto 15 mg tablet TAKE 1 TABLET BY MOUTH EVERY DAY active Not Available Not Available No t Available Breo Ellipta 100 mcg-25 mcg/dose powder for inhalation INHALE 1 PUFF INTO THE LUNGS DAILY active Not Available Not Available No t Available Aveed 750 mg/3 mL (250mg/mL) intramuscul ar solution every 10 weeks injection active Not Available Not Available No t Available Jardiance 10 mg tablet TAKE 1 TABLET BY MOUTH 1 TIME EACH DAY active Not Available Not Available No t Available Breo Ellipta 200 mcg-25 mcg/dose powder for inhalation INHALE 1 PUFF INTO THE LUNGS DAILY 09/02 completed Not Available Not Available Not Available cannabidiol 100 mg/mL oral solution twice per day 08/03 completed Not Available Not Available Not Available Aimovig Autoinjecto r 140 mg/mL subcutaneou s auto-inject or active Not Available Not Available Not Available Sodium Fluoride 5000 Plus 1.1 % dental cream USE TO BRUSH TEETH TWICE DAILY active Not Available Not Available No t Available Nurtec ODT 75 mg disintegrat ing tablet DISSOLVE ONE TABLET BY MOUTH EVERY DAY NEEDED MIGRAINE. active Not Available Not Available No t Available Ajovy 225 mg/1.5 mL subcutaneou s auto-inject or ADMINISTE R 1.5 ML UNDER THE SKIN EVERY 28 DAYS active Not Available Not Available No t Available BinaxNOW COVID-19 Ag Self Test kit TEST DIRECTED TODAY 09/02 completed Not Available Not Available Not Available Qulipta 60 mg tablet active Not Available Not Available No t Available Vitals Date Recorded Body height Body mass index (BMI) Body weight Heart rate Oxygen saturation Oxygen saturation in Arterial blood by Pulse oximetry Systolic blood pressure Diastolic blood pressure Provider Name and Address Organization Details Last Updated DateTime 4 176.53 cm 30.6 kg/m2 78210.4 g 103 /min 96 % 96 % 140 mm[Hg] 80 mm[Hg] Carissa Newell [facility] 4 14:34:59 Date Recorded Body height Heart rate Oxygen saturation Oxygen saturation in Arterial blood by Pulse oximetry Systolic blood pressure Diastolic blood pressure Provider Name and Address Organization Details Last Updated DateTime 4 176.53 cm 93 /min 96 % 96 % 144 mm[Hg] 86 mm[Hg] Yared Schmidt, DO [address] [place], [address], [facility] 4 10:51:20 Date Recorded Body height Body mass index (BMI) Body weight Heart rate Oxygen saturation Oxygen saturation in Arterial blood by Pulse oximetry Systolic blood pressure Diastolic blood pressure Provider Name and Address Organization Details Last Updated DateTime 4 176.53 cm 30.1 kg/m2 63866.6 2 g 76 /min 97 % 97 % 138 mm[Hg] 80 mm[Hg] Todd Dias [facility] 4 15:07:49 Date Recorded Body height Body mass index (BMI) Body weight Heart rate Oxygen saturation Oxygen saturation in Arterial blood by Pulse oximetry Systolic blood pressure Diastolic blood pressure Provider Name and Address Organization Details Last Updated DateTime 4 176.53 cm 30.6 kg/m2 21729.4 g 64 /min 97 % 97 % 124 mm[Hg] 70 mm[Hg] Carissa Newell [facility] 4 10:54:26 Date Recorded Body height Body mass index (BMI) Body weight Heart rate Oxygen saturation Oxygen saturation in Arterial blood by Pulse oximetry Systolic blood pressure Diastolic blood pressure Provider Name and Address Organization Details Last Updated DateTime 4 176.53 cm 29.3 kg/m2 44978.0 7 g 94 /min 98 % 98 % 150 mm[Hg] 80 mm[Hg] Sun Edgar [facility] 4 11:39:34 Social History Question Answer Notes LastModified by Organizat ion Details LastModified Time Tobacco Smoking Status Former Smoker 25 plus years Not Available [employer] 01/26/2020 03:36:24 What Was The Date Of Your Most Recent Tobacco Screening? 02/05/2024 [email or web address] Information not available 02/05/2024 Do You Or Have You Ever Used Any Other Forms Of Tobacco Or Nicotine? No [email or web address] Information not available 11/14/2022 Sex: Unknown Functional Status None recorded. Mental Status None recorded. Family History Nothing Reported. Medical History No medical history recorded. Immunizations Vaccine Type Date Status Note Provider Nam e and Address Organization Details Recorded Time Influenza, split virus, quadrivalent, preservative 01/06/20 19 completed Gabbie blackman [facility] Internal [facility] 04/28/2019 11:13:39 zoster, unspecified formulation 02/12/20 20 completed Yared Schmidt DO [address] [place] [address], [phone], [facility] 02/13/2020 19:24:32 pneumococcal polysaccharide PPV23 01/18/20 16 tamiko blackman [facility] 08/02/2020 10:56:16 COVID-19, mRNA, LNP-S, PF, 30 mcg/0.3 mL dose 05/04/19 21 tamiko blackman [facility] 08/02/2020 10:56:31 COVID-19, mRNA, LNP-S, PF, 30 mcg/0.3 mL dose 05/26/19 21 tamiko blackman [facility] Internal [facility] 08/02/2020 10:56:36 Influenza, split virus, quadrivalent, preservative 11/28/19 18 completed Yared Schmidt DO [address] [place] [address], [phone], [facility] 11/28/2017 08:13:19 Past Encounters Encounter ID Performer Location Encounter Start Date Encounter Closed Date Diagnosis/Indication Diagnosis SNOMED-CT Code Diagnosis ICD10 Code Diagnosis Note [id number] Yared Schmidt [facility] [address] [facility], [facility] [place] [address] 07/29/2018 16:17:00 07/30/2018 08:48:13 Essential hypertension 29237897 I10 on cozaar 100 but is running high at home as well Hypogonadism 18577226 E2 9.1 Type 2 santos betes mellitus 80887703 E11.9 needs a1c done and this is ordered [id number] Yared Schmidt [facility] [address] [facility], [facility] [place] [address] 01/23/2019 15:21:09 01/23/2019 15:54:51 Type 2 diabetes mellitus 63148106 E11.9 needs a1c done and this is ordered Essential hypertension 73525318 I10 on cozaar 100 systolic is still a little high Hypogonadism 10005556 E2 9.1 on cialis doing we.ll Atheroscle rosis of coronary artery without angina pectoris 2267195361 50026 I25.10 has had a vague chest discomfort several weeks ago and will refer to dr french [id number] Yared Schmidt [facility] [address] [facility] [place] [address] 04/28/2019 11:09:47 04/28/2019 11:50:34 Polymyalgia rheumatica 36309742 M35.3 will cont 15mg daily for the next several weeks and then try 12.5 mg and we will cont [place] [id number] Yared Schmidt [facility] [address] [facility], ite [facility] [place] [address] 05/27/2019 13:36:45 05/27/2019 14:23:55 Type 2 diabetes mellitus 02636379 E11.9 needs a1c done and this is ordered Essential hypertension 10010847 I10 on cozaar 100 systolic is still a little high Hypogonadism 94981212 E2 9.1 on cialis doing we.ll Asthma 832878777 J45.90 9 Active or passive immunization 706200452 Z23 he will go for his wnd shingles vacc Hepatitis C screening 41 8532254 Z11.59 Polymyalgi a rheumatica 21966369 M35.3 will cont 15mg daily for the next several weeks and then try 12.5 mg and we will cont [place] [id number] Yared Schmidt [facility] [address] [facility] on [place] [facility] [address] 07/01/2019 09:05:44 07/01/2019 14:28:02 Essential hypertension 84439278 I10 on cozaar 100 systolic is still a little high but is followed Atheroscle rosis of coronary artery without angina pectoris 9040051796 17759 I25.10 stable and asymptomat ic Type 2 santos betes mellitus 53843387 E11.9 needs a1c done and this is ordered Renewal of prescription 657081793 Z76.0 Depressive disorder 3548 9007 F32.9 doing ok despite the stress with covid will order refill [id number] Yared Schmidt [facility] [address] [facility] on [place], [place] [address] 08/03/2020 10:10:59 08/03/2020 13:56:15 Essential hypertension 31917492 I10 on cozaar 100mg but is well tolerated systolic is still a little high but is followed and is good Type 2 santos betes mellitus 87905929 E11.9 needs a1c done and this is ordered Asthma 432393587 J45.90 9 stable and is doing ok Accidental needle stick injury 1181606102 8356751 T14.8XXA will need to have lab drawn Multiple a ctinic keratoses 258388978 L57.0 will be seing dermatolog y in couple weeks [id number] Yared Schmidt [facility] [address] [facility] on [place], [employer] [place] [address] 11/18/2020 09:27:45 11/18/2020 10:15:00 Asthma 816596590 J45.909 stable and is doing ok Type 2 santos betes mellitus 67753157 E11.9 needs a1c done and this is ordered Essential hypertension 40259269 I10 on cozaar 100mg but is well tolerated systolic is still a little high but is followed and is good Polymyalgi a rheumatica 26308026 M35.3 will cont 5 mg daily for the next several weeks and then try 12.5 mg and we will cont [place] [id number] NIALL EDWARDS [facility] [address] [facility], [place] [address] 05/23/2021 15:59:04 05/24/2021 10:49:28 Loose stool 880675397 R19.5 fu with lab work Dysuria 80762272 R30.0 will send out blood work Diarrhea 57823483 A07.8 will fu after stool [id number] NIALL EDWARDS [facility] [address] [facility] on [place], [place] [address] 10/24/2021 14:46:13 10/24/2021 15:02:54 Multiple actinic keratoses 406498422 L57.0 will fu with nephro labs Iron defic iency anemia 89310411 D50.0 will recheck CBC and iron panel as well [id number] Yared Schmidt DO [facility] [address] [facility],[place] [address] 11/07/2021 14:47:55 11/07/2021 16:13:25 Asthma 677472291 J45.909 stable and is doing ok Tick bite 05475610 W57.X XXA gibven lack of pos lab his symptoms are such that we both agree to have him treated with doxy and see how he does in the next 3 days and reassess Type 2 santos betes mellitus 29585352 E11.9 a1c is 5.2 Polymyalgi a rheumatica 94428411 M35.3 does not compute as his esr and crp are negative [id number] Yared Schmidt DO [facility] [address] [facility] [place], [place] [address] 12/01/2021 07:55:25 12/01/2021 11:39:31 Shoulder joint pain 411734204 M25.519 has disappeare d but the wrists and hands got better and now have returned Migraine 02894938 G43.90 9 has referral to neuro pending Chronic ki dney disease stage 3B 139723791 N18.[address] melo next week lab pending Depressive disorder 2238 9007 F32.9 this has become an issue and he has it worse than recently on bupropion Obstructiv e sleep apnea syndrome 07600102 G47.33 uses cpap but not feeling refreshed [place] [id number] Yared Schmidt DO [facility] [address] [facility], [place] [address] 12/15/2021 11:33:44 12/15/2021 13:35:51 Multiple joint pain 32652465 M25.50 Lyme disease 67119571 A6 9.20 Memory impairment 988984 006 R41.3 Hearing loss 33969340 H9 1.93 [id number] NIALL EDWARDS [facility] [address] [facility], [place] [facility] [place] [address] 06/08/2022 10:02:47 06/08/2022 12:08:25 Dysphagia 33025860 R13.12 agreed to upper GI serieswill send to [facility] Altered kishan wel function 59947363 R19.4 will set up with Upper GI series and stool cultures Abdominal pain 87629880 R10.0 will fu with lab work Toothache 57839793 K08.8 9 will set up with toothpaste [id number] [facility] [address] [facility], [place] [facility] [place] [address] 06/26/2022 11:45:50 06/26/2022 12:28:39 Diarrhea 66134834 A07.8 agreed to STAT referral with Dr. 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 and is not getting any treatment for potential fusobacter ium 'necrowhen he was on the ceftriax and metronidaz ole IV in hosp his mucous sx had all actually disappeare d now they are back although he does feel better 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 [id number] Yared Schmidt [facility] [address] [facility],[place] [address] 12/14/2022 12:02:45 12/14/2022 13:24:52 Chronic kidney disease stage 3B 896923842 N18.[address] melo on regular basis Asthma 451015692 J45.90 9 stable and is doing ok Atheroscle rosis of coronary artery without angina pectoris 0677184632 73100 I25.10 stable and asymptomat ic Herpes labialis 6597898 B00.1 will provide with rx [id number] Yared Schmidt [facility] [address] [facility],[place] [address] 06/12/2023 10:20:33 06/12/2023 11:00:51 Asthma 088139561 J45.909 stable and is doing ok Essential hypertension 78906588 I10 on cozaar 100mg but is well tolerated systolic is still a little high but is followed and is good Hypogonadism 66002332 E2 9.1 on cialis doing well Type 2 santos betes mellitus 81811569 E11.9 a1c is 5.2 last done needs new lab done Chronic ki dney disease stage 3B 919386585 N18.[address] melo on regular basis Impacted c erumen of bilateral ears 7083943965 571459 H61.23 [id number] Yared Schmidt [facility] [address] [facility] on [place], [place] [address] 09/03/2023 16:01:35 09/03/2023 16:41:06 Depression screening 383253197 Z13.31 he is certainly stressed Iron defic iency anemia 78338265 D50.0 he is not yet anemic Iron deficiency 37301800 E61.1 he needs an infusion Lemierre syndrome 615643 3515 I80.8 he is only on cefuroxime and is not getting any treatment for potential fusobacter ium 'necrowhen he was on the ceftriax and metronidaz ole IV in hosp his mucous sx had all actually disappeare d now they are back although he does feel better [id number] Yared Schmidt [facility] [address] [facility] on [place] [address] 09/24/2023 14:31:22 09/24/2023 15:38:46 Type 2 diabetes mellitus 22088381 E11.9 a1c is 5.2 last done needs new lab done Essential hypertension 95534688 I10 on losartan 100mg but is well tolerated systolic is still a little high but is followed and is good [id number] Yared Schmidt [facility] [address] [facility] on [place] [facility] [place] [address] 10/25/2023 10:46:13 10/25/2023 15:34:50 Laceration of left hand 5421215382 8624551 S61.412A well approx steri strips and sterile dressing with wound infect precaution s Memory impairment 044748 006 R41.3 Acute depression 3973481 08 F32.A Depressive disorder 3548 9007 F32.9 this has become an issue and he has it worse than recently on bupropion [id number] Yared Schmidt [facility] [address] [facility] on [address] [place] [address] 11/18/2023 15:01:04 11/18/2023 15:44:57 Laceration of left hand 6744402186 8702368 S61.412A well approx well healed great movemnt and full rom [id number] Yared Schmidt [facility] [address] [facility] on [place] 7 12/18/2023 10:42:44 12/18/2023 11:25:29 Type 2 diabetes mellitus 26602190 E11.9 a1c is 5.2 last done needs new lab done Iron defic iency anemia 85940992 D50.0 he will get the iron level checked from the kidney Asthma 952580782 J45.90 9 stable and is doing ok Lightheadedness 39979634 8 R42 several possibilit ies chk sugarthen change the losartan timingcoul d the jardiance be dumping too much sodium ??? [id number] NIALL EDWARDS [facility] [address],[place] [address] 02/05/2024 11:33:17 02/05/2024 12:06:01 Type 2 diabetes mellitus 56578934 E11.9 stable Chronic hoarseness 63823 15692 105 R49.0 Fatigue 64839387 R53.83 agreed Hypotensive episode 6776 3001 I95.0 stable today Iron deficiency 44160509 E61.1 will set up with ferritin Health Concerns Section Related Observation LastModified by Organization Detai ls LastModified Time None Recorded Concern Status LastModified by Organization Details LastModified Time None Recorded Advance Directives Directive None Recorded Payers Encounter Date Sequence Insurance Name Policy Number Policy Morris Covered Member ID Morris Member ID Guarantor Name 09/24/2023 1 [place]: [facility] Jose Gardner [id number] Jose [facility] 09/24/2023 2 [employer] OPTIONS (MEDICARE SUPPLEMENT) Jose Gardner [id number] Jose Mackdean 10/25/2023 1 [place] [facility] Jose Gardner [id number] [address] [facility] 10/25/2023 2 [employer] OPTIONS (MEDICARE SUPPLEMENT) Jose Gardner [id number] Jose Mackdean 11/18/2023 1 [place] [facility] Jose Gardner [id number] [address] [facility] 11/18/2023 2 [employer] OPTIONS (MEDICARE SUPPLEMENT) Jose Gardner [id number] Jose Mackdean 12/18/2023 1 [place] [facility] Jose Gardner [id number] [facility] 12/18/2023 2 [employer] OPTIONS (MEDICARE SUPPLEMENT) Jose Gardner [id number] Jose Gardner 02/05/2024 1 [place] [facility] Jose Gardner [id number] Jose Dashdean 02/05/2024 2 [facility] HEALTHC[facility] OPTIONS (MEDICARE SUPPLEMENT) Jose Gardner [id number] Jose Gardner Notes Date Note Type Note Provider Name and Address Organization Details Recorded Time 4 text/htm l Care Management - HypertensionReported bypatient.Self Care:not under emotional stress Severity:symptoms are improving; does not interfere with daily activities Associated Symptoms:no dizziness; no lightheadedness; no chest pain; no shortness of breath; no palpitations; no edema; no calf muscle cramps; no blurred vision; no confusion; no headaches; no fatigue states feels he has noted elevation of pulse by 30 beats when arisingstates that he has felt orthostat at timesalso his bp is not well controlledrelates a lot of belching etc last nightnot feeling well Yared Schmidt DO [address] [place] [address], [address], [facility] 09/24/2023 14:53:44 4 text/htm l noted severe laceration to left palmall stitches intactfull rom of fingers Yared Schmidt DO [address] [place] [address], [phone], [facility] 10/25/2023 11:26:51 4 text/htm l here for rechk on his hand has healed nicely and feeling goodstates that has good romhas good sensation Yared Schmidt DO [address] [place] [address], [address], [facility] 11/18/2023 15:43:50 4 text/htm l here for rechk and relates having episodes of low bp every morningstates that he has been having now for months takes the losartan at nighthe wakes up fine then in 20min he begins to have the lightheadedness he drinks V8 juice and immediately starts feeling better Yared Schmidt DO [address] [place], [address], [facility] 12/18/2023 11:25:12 4 text/htm l c/o fatigue, malaise the patient reports that he is getting hypotensive, always in the morning (usually an hour or two after he wakes up) the patient is having issues with cough, hoarseness, fatigue, had a cold this past month the patient reports that he had COVID beforeongoing fatigue, malaise, body aches the patient reports that he uses claritin every day recommended fu lab work NIALL EDWARDS [address] [place] [address], [place], [address], [facility] 02/05/2024 12:05:15
--- OUTSIDE RECORDS SUMMARY | 2024-06-23 16:24 | XMS_ITS | Encounter Summary ---
Author Organization [facility], Address [address] [place] [address] Phone Care Team Providers Care Ferruler Name Role Phone Yared Kam DO Primary Care Provider [phone] Encounter Details Date Type Department Care Team (Late st Contact Info) Description 08/02/2020 Orders Only [facility] [address] [place] [address] Jose Newell MD [address] [place] [address] [place] [phone] 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hy (HCC); Nephrolithiasis; Stage 3b chronic kidney disease (HCC) Social History Tobacco Use Types Packs/Day Years [...] Visit [facility], - [place] [address] [place] [phone] Bereket Billings MD [address] [place] [address] [place] [address] documented as of this encounter Procedures Procedure Name Priority Date/Time Associated Diagnosis Comments SARS-COV-2 SEMI-QUANT TOTAL AB, SPIKE Routine 08/03/2020 1:39 PM EDT documented in this encounter Results * Sars-Cov-2 Semi-Quant total AB (08/03/2020 1:39 PM EDT) SARS CoV 2 Ab IgG POSITIVE [facility] Comment: Reference range: NEGATIVE (NOTE) Results suggest recent or prior infection with SARS-CoV-2. Correlation with epidemiologic risk factors and other clinical and laboratory findings is recommended. Serologic results should not be used as the sole basis to diagnose or exclude recent SARS-CoV-2 infection. False positive results infrequently occur due to prior infection with other human Coronaviruses. This assay was performed using the [employer](R) SARS-CoV-2 S1/S2 IgG assay. This test has not been FDA cleared or approved. This test has been authorized by FDA under an Emergency Use Authorization (EUA). This test is only authorized for the duration of the declaration that circumstances exist justifying the authorization of emergency use of in vitro diagnostics for detection and/or diagnosis of COVID-19 under Section 564(b)(1) of the Act, 21 U.S.C. 360bbb-3(b)(1), unless the authorization is terminated or revoked sooner. This test has been authorized only for detecting the presence of antibodies against SARS-CoV-2, not for any other viruses or pathogens. This assay detects antibodies against SARS-CoV-2 spike protein including the receptor binding domain (RBD). TEST PERFORMED BY [facility], [place] Testing performed or reported by [facility], a Service of [facility], [facility] [place] [address] Pipo Zamorano MD, Patient Access Representative 08/03/2020 1:39 PM EDT 08/03/2020 1:41 PM EDT Jose Newell MD LAB BLOOD ORDERABLES Final Res ult [facility] documented in this encounter Visit Diagnoses Diagnosis 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hy (HCC) Nephrolithiasis Stage 3b chronic kidney disease (HCC) documented in this encounter Care Teams Ferruler Relationship Specialty Start Date End Date Yared Kam DO [address] [place] [address] PCP - General 01/27/19 documented as of this encounter
[2024-06-23 18:15] LABS: MANUAL DIFF FLAG NO
[2024-06-23 19:02] LABS: Basophils Percent Auto 0.5 % (0-2); Eosinophils Absolute Auto 0.1 X10*3/uL (0.0-0.4); Eosinophils Percent Auto 1.9 % (0-4); Hematocrit 36.7 % (42.0-52.0); Hemoglobin 12.5 g/dl (14.0-18.0); Imm Gran Abs Auto 0.03 X10*3/uL (0.00-0.03); Imm Gran Pct Auto 0.4 % (0.0-0.4); Lymphocytes Absolute Auto 0.8 X10*3/uL (1.2-4.9); Lymphocytes Percent Auto 10.3 % (20-40); Mean Corpuscular HGB Conc 34.1 g/dl (31.0-36.0); Mean Corpuscular Hemoglobin 31.8 pg (27.0-33.0); Mean Corpuscular Volume 93.4 fL (80.0-98.0); Mean Platelet Volume 10.7 fL (9.4-12.4); Monocytes Absolute Auto 0.8 X10*3/uL (0.1-1.2); Monocytes Percent Auto 10.3 % (2-11); Neutrophils Absolute Auto 5.6 x10*3/uL (2.0-8.3); Neutrophils Percent Auto 76.6 % (45-73); Platelet Count 195 X10*3/uL (160-400); Red Blood Count 3.93 X10*6/uL (4.60-5.80); Red Cell Distribution Width 14.4 % (11.0-16.0); White Blood Count 7.3 X10*3/uL (4.8-10.8)
[2024-06-23 19:31] LABS: Iron 60 mcg/dL (45-160); Percent Iron Saturation 20 % (15-50); Total Iron Binding Capacity 297 mcg/dL (228-428); Unsaturated Iron Binding 237 ug/dL
[2024-06-23 19:55] LABS: Ferritin 28 ng/mL (20-250)
== END 2024-06-23 13:47 | disposition home or self-care (01) ==
LOC: HO.MANLDS 13:46
PROVIDERS: Visit Provider Physician Assistant
DX: Z13.89 Encounter for screening for other disorder (principal)
CPT/HCPCS: 36415; 82728; 83540; 85025